=== PATIENT | female | born 1960 | race Hispanic/Latino ===

== ENCOUNTER 2016-07-31 06:57 | Inpatient (IN) | payer MEDICAID, OTHER ==
[2016-07-31 07:02] VITALS: BMI 21.9
[2016-07-31 07:05] VITALS: O2SAT 99
[2016-07-31] MEDS ORDERED: Multivitamin (MVI) 10 ML, Thiamine 100 MG, Folic Acid 1 MG in Sodium Chloride 0.9% 1,00... IV ONE (07:51)
--- NOTE | 2016-07-31 08:06 | ED PDOC ---
Arrival/HPI - General Chief Complaint: Psychiatric Evaluation Time Seen by Provider: 07/31/16 07:20 Historian: Patient - History of Present Illness Narrative History of Present Illness (Text): 07/31/16 08:10 A 55 year old female, whose past medical history includes alcoholism, anxiety and depression, presents to the emergency department complaining of nausea. Patient reports thinks feeling alcohol withdrawal. Patient reports to drinking nonstop for the past 3 months, last drink was 3 days ago. Patient also reports she has been at [facility] the last two days and was sent here for psychiatric admission. Patient notes depression, anxiety and feeling sadness, but denies suicidal ideation or any other complaints at this time. Patient denies any surgeries. Patient notes to smoking a pack a day and heavily drinking normally. 07/31/16 17:24 Symptom Onset: Sudden Symptom Course: Unchanged Activities at Onset: Rest Context: Home Past Medical History - Provider Review Nursing Documentation Reviewed: Yes - Cardiac Hx Cardiac Disorders: No - Pulmonary Hx Respiratory Disorders: No - Neurological Hx Neurological Disorder: No - HEENT Hx HEENT Disorder: No - Renal Hx Renal Disorder: No - Endocrine/Metabolic Hx Endocrine Disorders: No - Hematological/Oncological Hx Blood Disorders: No Other/Comment: hepatitis - Integumentary Hx Dermatological Disorder: No - Musculoskeletal/Rheumatological Hx Musculoskeletal Disorders: No - Gastrointestinal Hx Gastrointestinal Disorders: No Other/Comment: pud - Genitourinary/Gynecological Hx Genitourinary Disorders: No - Psychiatric Hx Anxiety: Yes Hx Depression: Yes Hx Substance Use: No - Surgical History Hx Hysterectomy: Yes Hx Tubal Ligation: Yes Family/Social History - Physician Review Nursing Documentation Reviewed: Yes Family/Social History: No Known Family HX Smoking Status: Heavy Smoker > 10 Cigarettes Daily Hx Alcohol Use: Yes (beer) Frequency of alcohol use: Daily Hx Substance Use: No Allergies/Home Meds Allergies/Adverse Reactions: Allergies No Known Allergies Allergy (Verified 07/31/16 07:02) Home Medications: Home Meds Medication Instructions Recorded Confirmed No Known Home Med 07/31/16 07/31/16 Review of Systems - Physician Review All systems were reviewed & negative as marked: Yes - Review of Systems Gastrointestinal: Nausea Psychiatric: Anxiety, Depression. absent: Suicidal Ideation Physical Exam Vital Signs Reviewed: Yes Vital Signs Temp Pulse Resp BP Pulse Ox 07/31/16 08:20 72 16 112/78 99 07/31/16 07:04 98.1 F 68 18 118/64 99 Temperature: Afebrile Blood Pressure: Normal Pulse: Regular Respiratory Rate: Normal Appearance: Positive for: Non-Toxic, Comfortable, Other (poor hygiene) Pain Distress: None Mental Status: Positive for: Alert and Oriented X 3 - Systems Exam Respiratory/Chest: Present: Clear to Auscultation, Good Air Exchange. No: Respiratory Distress, Accessory Muscle Use Cardiovascular: Present: Regular Rate and Rhythm, Normal S1, S2. No: Murmurs Abdomen: Present: Normal Bowel Sounds. No: Tenderness, Distention, Peritoneal Signs Psychiatric: Present: Alert, Oriented x 3, Normal Concentration, Anxious. No: Suicidal Ideation Medical Decision Making ED Course and Treatment: 07/31/16 07:59 Impression: A 55 year old female with a history of alcoholism, anxiety and depression. Differential Diagnosis included but are not limited to: Plan: -- Reassess and disposition Progress Notes: Dr. Talia Amezquita paged for psych and is aware of plan. Patient has a bed in psych and pt had already previously been cleared. 07/31/16 09:34 Dr. Talia Amezquita is at bedside and is aware of patient. No blood work needed. Dr. Amezquita will admit patient. 07/31/16 17:24 - Medication Orders Current Medication Orders: Fluoxetine HCl (Prozac) 10 mg PO DAILY [facility] Last Admin: 07/31/16 14:11 Dose: 10 mg Folic Acid (Folic Acid) 1 mg PO DAILY [facility] Last Admin: 07/31/16 09:56 Dose: 1 mg Gabapentin (Neurontin) 300 mg PO TID [facility] PRN Reason: Protocol Last Admin: 07/31/16 14:10 Dose: 300 mg Lorazepam (Ativan) 2 mg PO QID [facility] PRN Reason: Protocol Last Admin: 07/31/16 14:10 Dose: 2 mg Multivitamins (Thera Tab) 1 tab PO DAILY [facility] Last Admin: 07/31/16 09:56 Dose: 1 tab Nicotine (Nicoderm Cq) 1 patch TD DAILY [facility] Last Admin: 07/31/16 15:11 Dose: 1 patch Quetiapine Fumarate (Seroquel) 25 mg PO HS [facility] PRN Reason: Protocol Thiamine HCl (Vitamin B1 Tab) 100 mg PO DAILY [facility] Last Admin: 07/31/16 09:56 Dose: 100 mg Trazodone HCl (Desyrel) 50 mg PO HS PRN PRN Reason: Insomnia Discontinued Medications Famotidine (Pepcid) 20 mg IVP STAT STA Stop: 07/31/16 07:55 Multivitamins/Vitamin C 10 ml/Thiamine HCl 100 mg/ Folic Acid 1 mg/ Sodium Chloride 1,011.2 mls @ 100 mls/hr IV .[id number] ONE Stop: 07/31/16 17:57 Lorazepam (Ativan) Confirm Administered Dose 2 mg .ROUTE .STK-MED ONE Stop: 07/31/16 09:57 Last Admin: 07/31/16 10:11 Dose: 2 mg Ondansetron HCl (Zofran Inj) 4 mg IV ONCE ONE Stop: 07/31/16 07:55 - Scribe Statement The provider has reviewed the documentation as recorded by the Crescencio Kay Provider Scribe Attestation: All medical record entries made by the Babakibyamila were at my direction and personally dictated by me. I have reviewed the chart and agree that the record accurately reflects my personal performance of the history, physical exam, medical decision making, and the department course for this patient. I have also personally directed, reviewed, and agree with the discharge instructions and disposition. Disposition/Present on Arrival - Present on Arrival Any Indicators Present on Arrival: No History of DVT/PE: No History of Uncontrolled Diabetes: No Urinary Catheter: No History of Decub. Ulcer: No History Surgical Site Infection Following: None - Disposition Have Diagnosis and Disposition been Completed?: Yes Diagnosis: Anxiety Disposition: HOSPITALIZED Disposition Time: 09:00 Patient Plan: Admission Condition: STABLE
[2016-07-31] MEDS: Multivitamin Therapeutic Tab PO SCH (09:56)
--- NOTE | 2016-07-31 15:32 | PCM.PSYCH ---
Initial Psychiatric Evaluation - Initial Psychiatric Evaluation Type of Admission: Voluntary Legal Status: Capacity (pt has capacity to sing consent for treatment) Chief Complaint (in patient's own words): "I wanted to end up my life, I was thinking to walk into the traffic" Patient's Reaction to Hospitalization: pt was transferred from [facility] for evaluation and stabilization of depressive symptoms, suicidal ideation with the plan to walk into the traffic, pt also was drinking alcohol on daily basis, seems to have alcohol withdrawal symptoms. pt needs further evaluation and stabilization, meds titration. Vital Signs Temp Pulse Resp BP Pulse Ox 07/31/16 08:20 72 16 112/78 99 07/31/16 07:04 98.1 F 68 18 118/64 99 History of Present Illness and Precipitating Events: pt was transferred from [facility] for evaluation and stabilization of depressive symptoms, suicidal ideation with the plan to walk into the traffic, pt also was drinking alcohol on daily basis, seems to have alcohol withdrawal symptoms. pt needs further evaluation and stabilization, meds titration. Patient was seen in her room, patient presented to have poor personal hygiene, anxious, upper extremity tremor, seems to be withdrawing. fear ADLs. Patient reported that she was feeling hopeless, helpless, depressed, worthless, guilty, patient also reported that she had suicidal ideations with a plan to walk into the traffic. Patient reported that she has feeling of anxiety, social phobia, PTSD symptoms as well as generalized anxiety disorder. patient reported that she was drinking alcohol in order to help herself with depression and anxiety. Patient also reported that she was smoking cigarettes 1 pack a day counseling provided. 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 patient has history of suicidal attempts by cutting her wrists and overdosing on medications. Risk benefits alternatives of the medications explain. family history denied Medical issues patient is healthy. Past Psychiatric History - Past Psychiatric History Previous Treatment History: Inpatient Prior Professional Help: see HPI Prior Psychiatric Treatment: see HPI At [facility] hospital: see HPI Duration: see HPI Nature of Treatment: see HPI Explanation of prior treatment: see HPI History of Abuse: see HPI History of ETOH/Drug Use: see HPI History of Family Illness: see HPI Pertinent Medical Hx (Current Medical&Sleep Prob, Allergies): Allergies Allergy/AdvReac Type Severity Reaction Status Date / Time No Known Allergies Allergy Verified 07/31/16 07:02 Review of Systems - Review of Systems Systems not reviewed;Unavailable: Acuity of Condition - EENT Eyes: As Per HPI Ears: As Per HPI Nose/Mouth/Throat: As Per HPI - Breasts Breasts: As Per HPI - Cardiovascular Cardiovascular: As Per HPI - Respiratory Respiratory: As Per HPI - Gastrointestinal Gastrointestinal: As Per HPI - Genitourinary Genitourinary: As Per HPI - Reproductive: Female Reproductive:Female: As Per HPI - Menstruation Menstruation: As Per HPI - Musculoskeletal Musculoskeletal: As Par HPI - Integumentary Integumentary: As Per HPI - Neurological Neurological: As Per HPI - Psychiatric Psychiatric: As Per HPI - Endocrine Endocrine: As Per HPI - Hematologic/Lymphatic Hematologic: As Per HPI Mental Status Examination - Personal Presentation Personal Presentation: Looks stated age - Affect Affect: Flat - Motor Activity Motor Activity: Psychomotor Retardation - Reliability in Providing Information Reliability in Providing Information: Fair - Speech Speech: Organized - Mood Mood: Depressed, Anxious - Formal Thought Process Formal Thought Process: Paranoia - Hallucinations/Delusions Delusions: Persecution - Obsessions/Compulsions Obsessions: None Compulsions: None - Cognitive Functions Orientation: Person, Place, Situation Sensorium: Alert Attention/Concentration: Easily distracted Abstract Thinking: [place] Estimate of Intelligence: Average Judgement: Intact, as evidence by: Insight regarding need for hospitalization - Risk Risk: Suicidal, Seizure, Withdrawal, Self-mutilation, Diminished functioning - Strength & Assets Inventory Strength & Assets Inventory: Cooperative - Limitations Limitations: Other (good physical health) DSM 5 DX - DSM 5 DSM 5 Diagnosis: MDD r/o substance induced mood disorder alcohol use disorder alcohol withdrawal symptoms - Recommended/Plan of Treatment Treatment Recommendations and Plan of Treatment: milieu/structure/supportive therapy multivitamins, folic acid, Thiamine medical evaluation Prozac will be started Neurontin was started Seroquel was started ativan 2mg po qid scheduled for alcohol withdrawals trazodone 50mg po hs prn for insomnia SW evaluation will monitor closely Projected ELOS: 7days Prognosis: fair Discharge Plan and Discharge Criteria: Suicide/ homicide prevention, past psychiatric h/o, current psychiatric symptoms , medical problems, risk/benefits and alternatives of medications, medications compliance, coping strategies, substance abuse h/o, relapse prevention, importance of follow up with psychiatrist and therapist, discharge plan. - Smoking Cessation Smoking Cessation Initiated: Yes
[2016-08-01 07:30] LABS: ADD MANUAL DIFF? NO
[2016-08-01 07:34] LABS: BASO # 0.02 K/mm3 (0.0-2.0); BASO % 0.7 % (0.0-3.0); EOS # 0.1 (0.0-0.7); GRAN # 1.18 (1.4-6.5); HEMATOCRIT 40.2 % (36.0-48.0); LYMPH # 1.3 (1.2-3.4); LYMPH % 42.1 % (22.0-35.0); MEAN CELL VOLUME 97.1 fL (80.0-105.0); MEAN CORPUSCULAR HEMOGLOBIN 33.3 pg (25.0-35.0); MEAN CORPUSCULAR HGB CONC 34.3 g/dl (31.0-37.0); MONO # 0.5 (0.1-0.6); MONO % 16.2 % (1.0-6.0); PLATELET COUNT 154 10^3/uL (120.0-450.0); RED CELL DISTRIBUTION WIDTH 13.3 % (11.5-14.5)
[2016-08-01 07:48] LABS: ALB/GLOB RATIO 1.7 (1.1-1.8); ALKALINE PHOSPHATASE 59 U/L (38-133); ALT/SGPT 26 U/L (7-56); AST/SGOT 24 U/L (15-39); BILIRUBIN,TOTAL 0.6 mg/dL (0.2-1.3); BLOOD UREA NITROGEN 19 mg/dL (7-21); CALCIUM 9.5 mg/dL (8.4-10.5); CARBON DIOXIDE 27 mmol/L (21-33); CHLORIDE 107 mmol/L (98-107); CHOLESTEROL 228 mg/dL (130-200); GFR AFRICAN-AMERICAN > 60; GLUCOSE,FASTING 90 mg/dL (65-110); GLUCOSE,RANDOM 90 mg/dL (70-110); POTASSIUM 4.5 mmol/L (3.6-5.0); SODIUM 139 mmol/L (132-148); TOTAL PROTEIN 6.4 g/dL (5.8-8.3)
[2016-08-01 08:48] LABS: FREE T4 0.77 ng/dL (0.78-2.19)
[2016-08-01] MEDS: Multivitamin Therapeutic Tab PO SCH (08:48)
[2016-08-01] MEDS ORDERED: Alum-Mag Hydrox-Simethicone Susp (30 mL) PO PRN (08:56)
[2016-08-01 09:02] LABS: THYROID STIMULATING HORMONE 2.77 mIU/mL (0.46-4.68)
[2016-08-01] MEDS: Alum-Mag Hydrox-Simethicone Susp (30 mL) PO PRN (10:58)
[2016-08-01 11:36] LABS: AMYLASE 103 U/L (35-125); LIPASE 71 U/L (23-300)
--- NOTE | 2016-08-01 11:45 | CP.PCM.HP ---
<Bhupinder Julio - Last Filed: 08/01/16 11:21> History of Present Illness - History of Present Illness History of Present Illness: Medicine Consult Note. Dr. Clemons CC: Suicidal Ideation Patient is a poor historian. 55yo F with PMHx of ETOH Abuse, Depression, unknown GI ulcer, here for evaluation of suicidal ideation. Patient states that she has been depressed for the past 3 months. She has been drinking increasing amount of alcohol in order to "calm her nerves" over this time. She was seen at [facility] multiple times for similar complaints. This time, she had a suicidal attempt where she took a plastic bag and tied it around her head. She was transferred to [facility] for inpatient psych admission. Complains of feeling hopeless and helpless. Patient reports a chronic cough for the past 3 months, productive of white sputum. Subjective fevers and chills over the same amount of time. Patient reports that she was told that she has an ulcer as shown by EGD a few months back, unsure if this was done at [facility] or [facility]. She states that she also had a colonoscopy done at that time which was unremarkable. Currently, c/o right sided and lower abdominal pain. She also complains of a left sided breast lump for which she states had an out-patient mammogram about a year back but never followed up with results. No CP/SOB. No N/ V/D. No headaches. No vision changes, no hearing changes. PMHx - GI ulcer, ETOH abuse PSHx - Tubal Ligation, Bilateral Breast Implant, Hysterectomy Family Hx - Sister - breast CA, skin CA; multiple first degree relatives with cancers (pancreatic, Breast, Uterine, Esophageal, Lung) Social Hx - current pack a day smoker; Current Increased ETOH use (does not quantify); Denies any drug abuse. Lives in hotels at [place] NKDA Denies any prescribed meds at home Present on Admission - Present on Admission Any Indicators Present on Admission: No Review of Systems - Review of Systems All systems: reviewed and no additional remarkable complaints except - Constitutional Constitutional: Chills, Fever, Weight Loss (15lbs over 10 days) - EENT Eyes: absent: Change in Vision Ears: absent: Decreased Hearing - Breasts Breasts: Mass (c/o left breast lump) - Cardiovascular Cardiovascular: absent: Chest Pain, Dyspnea - Respiratory Respiratory: Cough - Gastrointestinal Gastrointestinal: Abdominal Pain. absent: Diarrhea, Nausea, Vomiting - Musculoskeletal Musculoskeletal: absent: Back Pain, Muscle Weakness, Neck Pain - Neurological Neurological: absent: Dizziness - Psychiatric Psychiatric: Anxiety, Hopelessness, Suicidal Ideation. absent: Homicidal Ideation Past Patient History - Past Social History Smoking Status: Heavy Smoker > 10 Cigarettes Daily - CARDIAC Hx Cardiac Disorders: No - PULMONARY Hx Respiratory Disorders: No - NEUROLOGICAL Hx Neurological Disorder: No - HEENT Hx HEENT Problems: No - RENAL Hx Chronic Kidney Disease: No - ENDOCRINE/METABOLIC Hx Endocrine Disorders: No - HEMATOLOGICAL/ONCOLOGICAL Hx Blood Disorders: No Other/Comment: hepatitis - INTEGUMENTARY Hx Dermatological Problems: No - MUSCULOSKELETAL/RHEUMATOLOGICAL Hx Musculoskeletal Disorders: No - GASTROINTESTINAL Hx Gastrointestinal Disorders: No Other/Comment: pud - GENITOURINARY/GYNECOLOGICAL Hx Genitourinary Disorders: No - PSYCHIATRIC Hx Substance Use: No - SURGICAL HISTORY Hx Hysterectomy: Yes Hx Tubal Ligation: Yes Meds Allergies/Adverse Reactions: Allergies Allergy/AdvReac Type Severity Reaction Status Date / Time No Known Allergies Allergy Verified 07/31/16 07:02 Physical Exam - Constitutional Appears: No Acute Distress, Unkempt, Older Than Stated Age - Head Exam Head Exam: ATRAUMATIC, NORMAL INSPECTION, NORMOCEPHALIC - Eye Exam Eye Exam: EOMI, Normal appearance. absent: Scleral icterus - ENT Exam ENT Exam: Mucous Membranes Moist - Respiratory Exam Respiratory Exam: Clear to Auscultation Bilateral, NORMAL BREATHING PATTERN. absent: Decreased Breath Sounds, Wheezes, Respiratory Distress - Cardiovascular Exam Cardiovascular Exam: RRR, +S1, +S2. absent: JVD - GI/Abdominal Exam GI & Abdominal Exam: Normal Bowel Sounds, Soft. absent: Distended, Guarding, Rebound, Rigid, Tenderness - Extremities Exam Extremities exam: Positive for: normal inspection. Negative for: calf tenderness, pedal edema - Back Exam Back exam: NORMAL INSPECTION. absent: CVA tenderness (L), CVA tenderness (R) - Neurological Exam Neurological exam: Alert, Normal Gait, Oriented x3 - Psychiatric Exam Psychiatric exam: Anxious, Depressed, Flat Affect, Suicidal Ideation - Skin Skin Exam: Rash (Central chest. few flat red rash with excoriation alonso. ) - Expanded Skin Exam Expanded Distribution of rash: Chest - Additional Findings Additional findings: Breast: No palpable lumps. No axillary lymphadenopathy. bilateral breast implants noted freely mobile, with associated surgical scars. No tenderness to palpation. No nipple retraction. Results - Vital Signs Recent Vital Signs: Last Vital Signs Temp 97.7 F 08/01/16 07:46 Pulse 65 08/01/16 07:46 Resp 20 08/01/16 07:46 BP 111/74 08/01/16 07:46 Pulse Ox 99 07/31/16 08:20 - Labs Result Diagrams: 08/01/16 07:10 08/01/16 07:10 Labs: Laboratory Results - last 24 hr 08/01/16 08/01/16 08/01/16 07:10 07:10 08:00 WBC 3.0 L RBC 4.14 Hgb 13.8 Hct 40.2 MCV 97.1 MCH 33.3 MCHC 34.3 RDW 13.3 Plt Count 154 MPV 9.0 Gran % 39.0 L Lymph % (Auto) 42.1 H Crook % (Auto) 16.2 H Eos % (Auto) 2.0 Baso % (Auto) 0.7 Gran # 1.18 L Lymph # 1.3 Crook # 0.5 Eos # 0.1 Baso # 0.02 Sodium 139 Potassium 4.5 Chloride 107 Carbon Dioxide 27 Anion Gap 10 BUN 19 Creatinine 0.8 Est GFR ( Amer) > 60 Est GFR (Non-Af Amer) > 60 Random Glucose 90 Fasting Glucose 90 Calcium 9.5 Total Bilirubin 0.6 AST 24 ALT 26 Alkaline Phosphatase 59 Total Protein 6.4 Albumin 4.0 Globulin 2.4 Albumin/Globulin Ratio 1.7 Triglycerides 57 Cholesterol 228 H LDL Cholesterol Direct 120 HDL Cholesterol 94 H Free T4 0.77 L TSH 3rd Generation 2.77 Assessment & Plan - Assessment and Plan (Free Text) Assessment: 55yo F with PMHx of GI ulcer, Depression here for evaluation of suicidal ideation. Medical consult requested for clearance 1. Suicidal Ideation management as per primary psych 2. ETOH Abuse CIWA protocol MVI/Folic Acid/Thiamine replacement Ativan scheduled management as per primary psych 3. Abd pain/ Hx of GI ulcer Amylase lipase wnl Protonix 40mg PO Daily will attempt to obtain records from outside facility 4. Chronic Cough in the setting of Tobacco abuse tobacco cessation counseling f/u Chest XRay Robitussin prn Nicotine Patch 5. Breast nodule patient reports out-patient Mammogram will attempt to obtain records from outside facility 6. PPx Ambulatory Protonix 40mg PO Daily Discussed case with Dr. Kaci Julio PGY1 <Debora Clemons - Last Filed: 08/01/16 13:45> Results - Vital Signs Recent Vital Signs: Last Vital Signs Temp 97.7 F 08/01/16 07:46 Pulse 65 08/01/16 07:46 Resp 20 08/01/16 07:46 BP 111/74 08/01/16 07:46 Pulse Ox 99 07/31/16 08:20 - Labs Result Diagrams: 08/01/16 07:10 08/01/16 07:10 Labs: Laboratory Results - last 24 hr 08/01/16 08/01/16 08/01/16 07:00 07:10 07:10 WBC 3.0 L RBC 4.14 Hgb 13.8 Hct 40.2 MCV 97.1 MCH 33.3 MCHC 34.3 RDW 13.3 Plt Count 154 MPV 9.0 Gran % 39.0 L Lymph % (Auto) 42.1 H Crook % (Auto) 16.2 H Eos % (Auto) 2.0 Baso % (Auto) 0.7 Gran # 1.18 L Lymph # 1.3 Crook # 0.5 Eos # 0.1 Baso # 0.02 Sodium 139 Potassium 4.5 Chloride 107 Carbon Dioxide 27 Anion Gap 10 BUN 19 Creatinine 0.8 Est GFR ( Amer) > 60 Est GFR (Non-Af Amer) > 60 Random Glucose 90 Fasting Glucose 90 Calcium 9.5 Total Bilirubin 0.6 AST 24 ALT 26 Alkaline Phosphatase 59 Total Protein 6.4 Albumin 4.0 Globulin 2.4 Albumin/Globulin Ratio 1.7 Triglycerides 57 Cholesterol 228 H LDL Cholesterol Direct 120 HDL Cholesterol 94 H Amylase 103 Lipase 71 Free T4 TSH 3rd Generation 08/01/16 08:00 WBC RBC Hgb Hct MCV MCH MCHC RDW Plt Count MPV Gran % Lymph % (Auto) Crook % (Auto) Eos % (Auto) Baso % (Auto) Gran # Lymph # Crook # Eos # Baso # Sodium Potassium Chloride Carbon Dioxide Anion Gap BUN Creatinine Est GFR ( Amer) Est GFR (Non-Af Amer) Random Glucose Fasting Glucose Calcium Total Bilirubin AST ALT Alkaline Phosphatase Total Protein Albumin Globulin Albumin/Globulin Ratio Triglycerides Cholesterol LDL Cholesterol Direct HDL Cholesterol Amylase Lipase Free T4 0.77 L TSH 3rd Generation 2.77 Attending/Attestation - Attestation I have personally seen and examined this patient.: Yes I have fully participated in the care of the patient.: Yes I have reviewed all pertinent clinical information: Yes Notes (Text): 08/01/16 13:39 MEDICAL CONSULTATION 55 year old female with past medical history of GI ulcer, depression and alcohol abuse who presented for evaluation of suicidal ideation. Medical consultation was requested for medical evaluation. Continue with management for anxiety/depression as per psychiatrist. Continue with multivitamin, folic acid and thiamine for alcohol abuse. She was counselled on alcohol abstinence. Continue with protonix and diet as tolerated for history of GI ulcer. Labs including LFTs and amylase/lipase are unremarkable. CXR is negative. Can add robitussin prn for cough. She was counselled on smoking abstinence. Patient reports history of breast nodule. She reports a mammogram she had few years ago but never followed up on. She also reports family history of different malignancies above. Reports recent EGD/colonoscopy. Will request for medical records for workup she has already had. Will order for ultrasound of the breasts. Thank you Dr. Amezquita for allowing us to follow up in the care of this patient. Debora Clemons MD Hospitalist.
[2016-08-01] MEDS ORDERED: guaiFENesin DM 100 mg-10 mg/5 ml UD PO PRN (12:03)
[2016-08-01] MEDS: Pantoprazole 40 mg EC Tab PO SCH (13:22)
--- NOTE | 2016-08-01 13:26 | RAD ---
HISTORY: cough COMPARISON: No prior. TECHNIQUE: Chest PA and lateral FINDINGS: LUNGS: No active pulmonary disease. PLEURA: No significant pleural effusion identified. No pneumothorax apparent. CARDIOVASCULAR: Normal. OSSEOUS STRUCTURES: No significant abnormalities. VISUALIZED UPPER ABDOMEN: Normal. OTHER FINDINGS: None. IMPRESSION: No active disease.
--- NOTE | 2016-08-01 15:41 | PCM.PYCHPN ---
Psychiatric Progress Note - Psychiatric Progress Note Patient seen today, length of contact: 30min Patient Chief Complaint: "I am so scared, I don't trust people" Problems Identified/Issues Discussed: Suicide/ homicide prevention, past psychiatric h/o, current psychiatric symptoms , medical problems, risk/benefits and alternatives of medications, medications compliance, coping strategies, substance abuse h/o, relapse prevention, importance of follow up with psychiatrist and therapist, discharge plan. 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 Diagnostic Results: 08/01/16 07:10 08/01/16 07:10 Lab Results 08/01/16 08:00: Free T4 0.77 L, TSH 3rd Generation 2.77 08/01/16 07:10: Sodium 139, Potassium 4.5, Chloride 107, Carbon Dioxide 27, Anion Gap 10, BUN 19, Creatinine 0.8, Est GFR ( Amer) > 60, Est GFR (Non- Af Amer) > 60, Random Glucose 90, Fasting Glucose 90, Calcium 9.5, Total Bilirubin 0.6, AST 24, ALT 26, Alkaline Phosphatase 59, Total Protein 6.4, Albumin 4.0, Globulin 2.4, Albumin/Globulin Ratio 1.7, Triglycerides 57, Cholesterol 228 H, LDL Cholesterol Direct 120, HDL Cholesterol 94 H 08/01/16 07:10: WBC 3.0 L, RBC 4.14, Hgb 13.8, Hct 40.2, MCV 97.1, MCH 33.3, MCHC 34.3, RDW 13.3, Plt Count 154, MPV 9.0, Gran % 39.0 L, Lymph % (Auto) 42.1 H, [place] % (Auto) 16.2 H, Eos % (Auto) 2.0, Baso % (Auto) 0.7, Gran # 1.18 L, Lymph # 1.3, [place] # 0.5, Eos # 0.1, Baso # 0.02 08/01/16 07:00: Amylase 103, Lipase 71 Vital Signs Temp Pulse Resp BP Pulse Ox 08/01/16 07:46 97.7 F 65 20 111/74 07/31/16 08:20 72 16 112/78 99 07/31/16 07:04 98.1 F 68 18 118/64 99 DSM 5 Symptoms Update: pt was transferred from [facility] for evaluation and stabilization of depressive symptoms, suicidal ideation with the plan to walk into the traffic, pt also was drinking alcohol on daily basis, seems to have alcohol withdrawal symptoms. pt needs further evaluation and stabilization, meds titration. Patient was at the treatment team, patient presented to have poor personal hygiene, anxious, upper extremity tremor, but better to compare with yesterday. Patient reported that she was feeling hopeless, helpless, depressed, worthless, guilty, patient also reported that she had suicidal ideation with a plan to walk into the traffic. patient was keep repeating "I cannot live this way no more". Patient presented to [facility], was keep repeating that she is scared and anxious. 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 patient has history of suicidal attempts by cutting her wrists and overdosing on medications. Risk benefits alternatives of the medications explain. patient said that she tolerated medications well, no side effects observed or reported. impression: DSM 5 Diagnosis: MDD r/o substance induced mood disorder alcohol use disorder alcohol withdrawal symptoms Medication Change: Yes Medical Record Reviewed: Yes Consults ordered or reviewed: medical consult appreciated Mental Status Examination - Cognitive Function Orientation: Person, Place, Situation Memory: Intact Attention: Poor Concentration: Poor Association: Loose Fund of Knowledge: Poor - Mood Mood: Depressed, Anxious - Affect Affect: Flat - Formal Thought Process Formal Thought Process: Paranoia - Suicidal Ideation Suicidal Ideation: No - Homicidal Ideation Homicidal Ideation: No Goal/Treatment Plan - Goal/Treatment Plan Need for Continued Stay: Remain at risks for inpatient hospitalization, Severe depression anxiety, Discharge may exacerbated symptoms, Severe functional impairment Progress Toward Problem(s) and Goals/Treatment Plan: milieu/structure/supportive therapy multivitamins, folic acid, Thiamine medical evaluation Prozac 20 mg daily for depression and anxiety Neurontin will be increased to 600 mg 3 times a day Seroquel will be increased to50 mg t the nighttime for psychosis ativan 2mg po qid scheduled for alcohol withdrawals, with a plan to start weaning it off trazodone 50mg po hs prn for insomnia SW evaluation will monitor closely Estimated Date of D/C: 08/06/16 (we'll monitor closely) - Smoking Cessation Smoking Cessation Initiated: Yes
--- NOTE | 2016-08-02 09:05 | PCM.PYCHPN ---
Psychiatric Progress Note - Psychiatric Progress Note Patient seen today, length of contact: 25 min Patient Chief Complaint: "not so great" Problems Identified/Issues Discussed: I reviewed assessment and recent notes. I met with patient at bedside. Patient is oriented x3 and fairly calm and cooperative. Mood "isn't great", indicates that she currently has a migraine--which has improved a little overnight. Her affect is flat. Denies any other new discomfort or pain. Tolerating medications except for nicotine patch which she wanted lowered. Feels it is giving her hallucinations and headache. There were no behavioral issues overnight Diagnostic Results: r/o substance induced mood disorder alcohol use disorder alcohol withdrawal symptoms Medication Change: Yes (ativan tapered, nicotine patch lowered) Medical Record Reviewed: Yes Mental Status Examination - Cognitive Function Orientation: Person, Place, Situation Memory: Intact Attention: Poor Concentration: Poor Association: Loose Fund of Knowledge: Poor - Mood Mood: Depressed, Anxious - Affect Affect: Flat - Formal Thought Process Formal Thought Process: Hallucinations, Paranoia - Suicidal Ideation Suicidal Ideation: No - Homicidal Ideation Homicidal Ideation: No Goal/Treatment Plan - Goal/Treatment Plan Need for Continued Stay: Remain at risks for inpatient hospitalization, Severe depression anxiety, Discharge may exacerbated symptoms, Severe functional impairment Progress Toward Problem(s) and Goals/Treatment Plan: * c/w current tx and plan * No new weekend labs * Ativan tapered to 2 mg po TID today * Vitals reviewed and noted below: Selected Entries 08/01/16 08/01/16 07:46 19:58 Temperature 97.7 F Pulse Rate 65 85 Respiratory 20 18 Rate Blood Pressure 111/74 120/65 Estimated Date of D/C: 08/06/16 (we'll monitor closely)
[2016-08-02] MEDS: Pantoprazole 40 mg EC Tab PO SCH (09:06)
[2016-08-02] MEDS: Multivitamin Therapeutic Tab PO SCH (09:06)
[2016-08-02] MEDS: Apap-Butalbital-Caffeine 325-50-40mg Tab PO PRN ×2 (13:12→21:04)
[2016-08-02] MEDS ORDERED: Alum-Mag Hydrox-Simethicone Susp (30 mL) PO PRN (17:29)
[2016-08-02] MEDS: Alum-Mag Hydrox-Simethicone Susp (30 mL) PO PRN (17:52)
[2016-08-03] MEDS: Pantoprazole 40 mg EC Tab PO SCH (08:12)
[2016-08-03] MEDS: Multivitamin Therapeutic Tab PO SCH (08:13)
[2016-08-03] MEDS: Apap-Butalbital-Caffeine 325-50-40mg Tab PO PRN ×2 (08:18→16:00)
--- NOTE | 2016-08-03 09:16 | PCM.PYCHPN ---
Psychiatric Progress Note - Psychiatric Progress Note Patient seen today, length of contact: 25 min Patient Chief Complaint: "not so great" Problems Identified/Issues Discussed: I reviewed recent notes and met with patient in the dayroom. Patient remains oriented x3 and cooperative with questioning. She has a lot of questions for this provider and can be repetitive as well as rambling. Affect is anxious. Nonetheless she can be redirected. Patient reports that she remains depressed and anxious, specifies having a lot of social anxiety and dissociates sometimes on the unit when she's faced with interacting within a group. She has been tolerating Prozac well and reports of her headache from yesterday has resolved. Her sleep is "good with seroquel". She still reports having auditory hallucinations, specifically she hears "babies babble" and hears her fish sister's voice making mundane comments such as "let's make spaghetti". Patient does not appear to be responding to internal stimuli during our interactions. Her responses are generally relevant to questioning. Though, as noted above responses tend to ramble and thought process is a little scattered Patient denies any other new discomfort or pain. Tolerating medications. There were no behavioral issues overnight Diagnostic Results: r/o substance induced mood disorder alcohol use disorder alcohol withdrawal symptoms Medication Change: Yes (Seroquel increased to 12.5 mg AM + 25 mg HS for AH, anxiety, lability) Medical Record Reviewed: Yes (reports, labs, vitals, notes) Mental Status Examination - Cognitive Function Orientation: Person ("babies babbling, my sister talking to me"), Place, Situation Memory: Intact Attention: Poor Concentration: Poor Association: Loose Fund of Knowledge: Poor - Mood Mood: Depressed, Anxious - Affect Affect: Flat - Formal Thought Process Formal Thought Process: Hallucinations, Paranoia - Suicidal Ideation Suicidal Ideation: No - Homicidal Ideation Homicidal Ideation: No Goal/Treatment Plan - Goal/Treatment Plan Need for Continued Stay: Remain at risks for inpatient hospitalization, Severe depression anxiety, Discharge may exacerbated symptoms, Severe functional impairment Progress Toward Problem(s) and Goals/Treatment Plan: * c/w current tx and plan * No new weekend labs * Ativan tapered to 2 mg po TID on 08/02/16 * Seroquel increased to 12.5 mg AM + 25 mg HS for AH, anxiety, lability and scattered thought process * Vitals reviewed and noted below: Selected Entries 08/02/16 08/02/16 07:00 16:29 Temperature 97.9 F Pulse Rate 62 78 Respiratory 18 Rate Blood Pressure 111/68 140/77 Estimated Date of D/C: 08/06/16 (we'll monitor closely)
[2016-08-03] MEDS: Alum-Mag Hydrox-Simethicone Susp (30 mL) PO PRN (15:13)
[2016-08-04] MEDS: Apap-Butalbital-Caffeine 325-50-40mg Tab PO PRN ×3 (06:20→21:44)
[2016-08-04] MEDS: Pantoprazole 40 mg EC Tab PO SCH (08:14)
[2016-08-04] MEDS: Multivitamin Therapeutic Tab PO SCH (08:14)
--- NOTE | 2016-08-04 09:24 | PCM.PYCHPN ---
Psychiatric Progress Note - Psychiatric Progress Note Patient seen today, length of contact: 25 min Patient Chief Complaint: "not so great" Problems Identified/Issues Discussed: I reviewed recent notes and met with patient in the dayroom. Patient remains oriented x3 and cooperative with questioning. Her thought process continues to be scattered, rambling, repetitive and a little contradictory. Affect is anxious. Nonetheless she can be redirected. Patient reports that she remains depressed and anxious, specifies still having a lot of social anxiety and dissociates sometimes on the unit when she's faced with interacting within a group. She has been tolerating Prozac well and reports that her headache from Thursday has resolved. Her sleep is "good with seroquel". Patient also initially indicated that Seroquel was quite beneficial in resolving her auditory hallucinations during the day yesterday however, later in the conversation patient reports that Seroquel was not beneficial at all. Patient also expresses some frustration about the length of time it takes for the medications to work despite being reminded by this provider and staff about the therapeutic latency of her medications. Patient still reports having auditory hallucinations, of hearing her sister's voice making comments. Also reports visual hallucinations of seeing her boyfriend on a picnic and her sister making spaghetti and brownies. Of note, patient does not appear to be responding to internal stimuli during our interactions. Her responses are generally relevant to questioning. Though, as noted above responses tend to ramble and thought process is scattered Patient denies any other new discomfort or pain. Tolerating medications. There were no behavioral issues overnight Diagnostic Results: r/o substance induced mood disorder alcohol use disorder alcohol withdrawal symptoms Medication Change: Yes (Seroquel increased to 12.5/25 mg HS, ativan tapered) Medical Record Reviewed: Yes (reports, labs, vitals, notes) Mental Status Examination - Cognitive Function Orientation: Person (" my sister talking to me, visual hallucinations of seeing her boyfriend on a picnic and her sister making spaghetti and brownies.), Place , Situation Memory: Intact Attention: Poor Concentration: Poor Association: Loose Fund of Knowledge: Poor - Mood Mood: Depressed, Anxious - Affect Affect: Flat - Formal Thought Process Formal Thought Process: Hallucinations, Paranoia, Loosening of associations - Suicidal Ideation Suicidal Ideation: No - Homicidal Ideation Homicidal Ideation: No Goal/Treatment Plan - Goal/Treatment Plan Need for Continued Stay: Remain at risks for inpatient hospitalization, Severe depression anxiety, Discharge may exacerbated symptoms, Severe functional impairment Progress Toward Problem(s) and Goals/Treatment Plan: * c/w current tx and plan * No new weekend labs * Ativan tapered to 2 mg po TID on 08/02/16 and to 2 mg AMHS on 08/04/16 * Seroquel increased to 12.5 mg AM + 25 mg HS on 08/03/16 for AH, anxiety, lability and scattered thought process * Vitals reviewed and noted below: Selected Entries 08/04/16 07:37 Temperature 98.2 F Pulse Rate 78 Respiratory 17 Rate Blood Pressure 145/56 L Estimated Date of D/C: 08/06/16 (we'll monitor closely)
[2016-08-04] MEDS: Magnesium Hydroxide Susp 30 ml UD PO PRN (10:44)
[2016-08-05] MEDS: Apap-Butalbital-Caffeine 325-50-40mg Tab PO PRN ×3 (06:15→21:00)
[2016-08-05] MEDS: Multivitamin Therapeutic Tab PO SCH (08:32)
[2016-08-05] MEDS: Pantoprazole 40 mg EC Tab PO SCH (08:33)
--- NOTE | 2016-08-05 15:55 | PCM.PYCHPN ---
Psychiatric Progress Note - Psychiatric Progress Note Patient seen today, length of contact: 30 minutes Patient Chief Complaint: "people were just dancing on my bed, I also saw a spider on my neck, I asked my boyfriend may take it off?" Patient is acutely psychotic, no evidence for all of that Problems Identified/Issues Discussed: Suicide/ homicide prevention, past psychiatric h/o, current psychiatric symptoms , medical problems, risk/benefits and alternatives of medications, medications compliance, coping strategies, substance abuse h/o, relapse prevention, importance of follow up with psychiatrist and therapist, discharge plan. 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 Diagnostic Results: 08/01/16 07:10 08/01/16 07:10 Lab Results 08/01/16 08:00: Free T4 0.77 L, TSH 3rd Generation 2.77 08/01/16 07:10: Sodium 139, Potassium 4.5, Chloride 107, Carbon Dioxide 27, Anion Gap 10, BUN 19, Creatinine 0.8, Est GFR ( Amer) > 60, Est GFR (Non- Af Amer) > 60, Random Glucose 90, Fasting Glucose 90, Calcium 9.5, Total Bilirubin 0.6, AST 24, ALT 26, Alkaline Phosphatase 59, Total Protein 6.4, Albumin 4.0, Globulin 2.4, Albumin/Globulin Ratio 1.7, Triglycerides 57, Cholesterol 228 H, LDL Cholesterol Direct 120, HDL Cholesterol 94 H 08/01/16 07:10: WBC 3.0 L, RBC 4.14, Hgb 13.8, Hct 40.2, MCV 97.1, MCH 33.3, MCHC 34.3, RDW 13.3, Plt Count 154, MPV 9.0, Gran % 39.0 L, Lymph % (Auto) 42.1 H, [place] % (Auto) 16.2 H, Eos % (Auto) 2.0, Baso % (Auto) 0.7, Gran # 1.18 L, Lymph # 1.3, [place] # 0.5, Eos # 0.1, Baso # 0.02 08/01/16 07:00: Amylase 103, Lipase 71 Vital Signs Temp Pulse Resp BP Pulse Ox 08/01/16 07:46 97.7 F 65 20 111/74 07/31/16 08:20 72 16 112/78 99 07/31/16 07:04 98.1 F 68 18 118/64 99 Temp Pulse Resp BP Pulse Ox 98.5 F 73 18 139/63 99 08/05/16 08:03 08/05/16 08:03 08/05/16 08:03 08/05/16 08:03 07/31/16 08:20 DSM 5 Symptoms Update: pt was transferred from [facility] for evaluation and stabilization of depressive symptoms, suicidal ideation with the plan to walk into the traffic, pt also was drinking alcohol on daily basis, seems to have alcohol withdrawal symptoms. pt needs further evaluation and stabilization, meds titration. Patient was seen in her room, patient presented to have improved personal hygiene, less anxious, some improvement to compare with the last week, pt still has difficulties to stay focused, disorganized, psychotic, paranoid, "people were just dancing on my bed, I also saw a spider on my neck, I asked my boyfriend may take it off?" Patient is acutely psychotic, no evidence for all of that Patient reported that she was feeling hopeless, helpless, depressed, worthless, guilty,denied thoughts of harming self today. as per staff, patient presented to be disorganized, actively hallucinating, talking to imaginary boyfriend, oddly related to others, patient is compliant with the medications, no aggression, no agitation. Compliance with medications good. impression: DSM 5 Diagnosis: MDD r/o substance induced mood disorder alcohol use disorder alcohol withdrawal symptoms Medication Change: Yes (seroquel increased) Medical Record Reviewed: Yes (reports, labs, vitals, notes) Consults ordered or reviewed: medical consult appreciated Mental Status Examination - Cognitive Function Orientation: Person (" my sister talking to me, visual hallucinations of seeing her boyfriend on a picnic and her sister making spaghetti and brownies.), Place , Situation Memory: Intact Attention: Poor Concentration: Poor Association: Loose Fund of Knowledge: Poor - Mood Mood: Depressed, Anxious - Affect Affect: Flat - Formal Thought Process Formal Thought Process: Hallucinations ("people were dancing on my bed"), Paranoia, Loosening of associations - Suicidal Ideation Suicidal Ideation: No - Homicidal Ideation Homicidal Ideation: No Goal/Treatment Plan - Goal/Treatment Plan Need for Continued Stay: Remain at risks for inpatient hospitalization, Severe depression anxiety, Discharge may exacerbated symptoms, Severe functional impairment Progress Toward Problem(s) and Goals/Treatment Plan: milieu/structure/supportive therapy multivitamins, folic acid, Thiamine medical evaluation Prozac 20 mg daily for depression and anxiety Neurontin 800 mg 3 times a day Seroquel will be increased to50 mg at am and 100mg the nighttime for psychosis ativan will be tapering down SW evaluation will monitor closely Estimated Date of D/C: 08/06/16 (we'll monitor closely)
[2016-08-06] MEDS: Apap-Butalbital-Caffeine 325-50-40mg Tab PO PRN ×2 (07:19→14:28)
[2016-08-06] MEDS: Pantoprazole 40 mg EC Tab PO SCH (08:07)
[2016-08-06] MEDS: Multivitamin Therapeutic Tab PO SCH (08:07)
[2016-08-06] MEDS: Magnesium Hydroxide Susp 30 ml UD PO PRN (08:08)
--- NOTE | 2016-08-06 15:04 | PCM.PYCHPN ---
Psychiatric Progress Note - Psychiatric Progress Note Patient seen today, length of contact: 30 minutes Patient Chief Complaint: "I am depressed and anxious" Problems Identified/Issues Discussed: Suicide/ homicide prevention, past psychiatric h/o, current psychiatric symptoms , medical problems, risk/benefits and alternatives of medications, medications compliance, coping strategies, substance abuse h/o, relapse prevention, importance of follow up with psychiatrist and therapist, discharge plan. 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 Diagnostic Results: 08/01/16 07:10 08/01/16 07:10 Lab Results 08/01/16 08:00: Free T4 0.77 L, TSH 3rd Generation 2.77 08/01/16 07:10: Sodium 139, Potassium 4.5, Chloride 107, Carbon Dioxide 27, Anion Gap 10, BUN 19, Creatinine 0.8, Est GFR ( Amer) > 60, Est GFR (Non- Af Amer) > 60, Random Glucose 90, Fasting Glucose 90, Calcium 9.5, Total Bilirubin 0.6, AST 24, ALT 26, Alkaline Phosphatase 59, Total Protein 6.4, Albumin 4.0, Globulin 2.4, Albumin/Globulin Ratio 1.7, Triglycerides 57, Cholesterol 228 H, LDL Cholesterol Direct 120, HDL Cholesterol 94 H 08/01/16 07:10: WBC 3.0 L, RBC 4.14, Hgb 13.8, Hct 40.2, MCV 97.1, MCH 33.3, MCHC 34.3, RDW 13.3, Plt Count 154, MPV 9.0, Gran % 39.0 L, Lymph % (Auto) 42.1 H, [place] % (Auto) 16.2 H, Eos % (Auto) 2.0, Baso % (Auto) 0.7, Gran # 1.18 L, Lymph # 1.3, [place] # 0.5, Eos # 0.1, Baso # 0.02 08/01/16 07:00: Amylase 103, Lipase 71 Vital Signs Temp Pulse Resp BP Pulse Ox 08/01/16 07:46 97.7 F 65 20 111/74 07/31/16 08:20 72 16 112/78 99 07/31/16 07:04 98.1 F 68 18 118/64 99 Temp Pulse Resp BP Pulse Ox 98.5 F 73 18 139/63 99 08/05/16 08:03 08/05/16 08:03 08/05/16 08:03 08/05/16 08:03 07/31/16 08:20 Temp Pulse Resp BP Pulse Ox 98.1 F 72 16 128/82 99 08/06/16 07:52 08/06/16 07:52 08/06/16 07:52 08/06/16 07:52 07/31/16 08:20 DSM 5 Symptoms Update: pt was transferred from [facility] for evaluation and stabilization of depressive symptoms, suicidal ideation with the plan to walk into the traffic, pt also was drinking alcohol on daily basis, seems to have alcohol withdrawal symptoms. pt needs further evaluation and stabilization, meds titration. Patient was seen next to the nursing station, patient presented to have improved personal hygiene, less anxious, some improvement to compare with the last week, pt still has difficulties to stay focused, patient was more organized today, less psychotic, yesterday pt has impression that people had green party on her bed and had "spider on my neck". Patient reported that she feels "depressed and anxious". as per staff pt still disorganized, but hygiene is better, still oddly related to others, patient is compliant with the medications, no aggression, no agitation. Compliance with medications good. impression: DSM 5 Diagnosis: MDD r/o substance induced mood disorder alcohol use disorder alcohol withdrawal symptoms Medication Change: Yes (seroquel increased) Medical Record Reviewed: Yes (reports, labs, vitals, notes) Consults ordered or reviewed: medical consult appreciated Mental Status Examination - Cognitive Function Orientation: Person (" my sister talking to me, visual hallucinations of seeing her boyfriend on a picnic and her sister making spaghetti and brownies.), Place , Situation Memory: Intact Attention: Poor (some improvement) Concentration: Poor (some improvement) Association: Loose (some improvement) Fund of Knowledge: Poor - Mood Mood: Depressed (some improvement), Anxious - Affect Affect: Flat - Formal Thought Process Formal Thought Process: Hallucinations (deneid today), Paranoia, Loosening of associations - Suicidal Ideation Suicidal Ideation: No - Homicidal Ideation Homicidal Ideation: No Goal/Treatment Plan - Goal/Treatment Plan Need for Continued Stay: Remain at risks for inpatient hospitalization, Severe depression anxiety, Discharge may exacerbated symptoms, Severe functional impairment Progress Toward Problem(s) and Goals/Treatment Plan: milieu/structure/supportive therapy multivitamins, folic acid, Thiamine medical evaluation Prozac 30 mg daily for depression and anxiety Neurontin 800 mg 3 times a day Seroquel will be increased to 100 mg at am and 100mg the nighttime for psychosis ativan will be tapering down 1mg bid pt will be interviewed by the boarding home today SW evaluation will monitor closely Estimated Date of D/C: 08/08/16 (pt is still psychotic, disorganized)
[2016-08-07] MEDS: Apap-Butalbital-Caffeine 325-50-40mg Tab PO PRN ×3 (05:52→18:05)
[2016-08-07] MEDS: Multivitamin Therapeutic Tab PO SCH (08:14)
[2016-08-07] MEDS: Pantoprazole 40 mg EC Tab PO SCH (08:14)
--- NOTE | 2016-08-07 15:35 | CP.PCM.PN ---
<NoriBhupinder - Last Filed: 08/07/16 15:23> Subjective - Date & Time of Evaluation Date of Evaluation: 08/07/16 Time of Evaluation: 12:40 - Subjective Subjective: Medicine Progress note. Dr. Jeronimo Pt seen and counseled in psych bowling. Patient eating lunch. Denies any complaints. Objective - Vital Signs/Intake and Output Vital Signs (last 24 hours): Temp Pulse Resp BP Pulse Ox 98.0 F 65 16 124/74 99 08/07/16 07:37 08/07/16 07:37 08/06/16 07:52 08/07/16 07:37 07/31/16 08:20 - Medications Medications: Current Medications Acetaminophen (Tylenol 325mg Tab) 650 mg PO Q6H PRN PRN Reason: Pain, moderate (4-7) Last Admin: 07/31/16 20:22 Dose: 650 mg Acetaminophen/Butalbital/Caffeine (Fioricet) 1 tab PO Q8 PRN PRN Reason: Headache Last Admin: 08/07/16 11:16 Dose: 1 tab Al Hydrox/Mg Hydrox/Simethicone (Maalox Plus 30 Ml) 30 ml PO DAILY PRN PRN Reason: Indigestion / Heartburn Last Admin: 08/03/16 15:13 Dose: 30 ml Fluoxetine HCl (Prozac) 30 mg PO DAILY [facility] Last Admin: 08/07/16 08:15 Dose: 30 mg Folic Acid (Folic Acid) 1 mg PO DAILY [facility] Last Admin: 08/07/16 08:14 Dose: 1 mg Gabapentin (Neurontin) 800 mg PO TID [facility] PRN Reason: Protocol Last Admin: 08/07/16 13:07 Dose: 800 mg Guaifenesin/Dextromethorphan (Robitussin Dm) 5 ml PO Q4H PRN PRN Reason: Cough Lorazepam (Ativan) 1 mg PO BID [facility] PRN Reason: Protocol Last Admin: 08/07/16 08:16 Dose: 1 mg Magnesium Hydroxide (Milk Of Magnesia) 30 ml PO DAILY PRN PRN Reason: Constipation Last Admin: 08/06/16 08:08 Dose: 30 ml Multivitamins (Thera Tab) 1 tab PO DAILY [facility] Last Admin: 08/07/16 08:14 Dose: 1 tab Nicotine (Nicoderm Cq) 1 patch TD DAILY [facility] Last Admin: 08/07/16 08:13 Dose: 1 patch Pantoprazole Sodium (Protonix Ec Tab) 40 mg PO ACB [facility] Last Admin: 08/07/16 08:14 Dose: 40 mg Quetiapine Fumarate (Seroquel) 100 mg PO HS [facility] PRN Reason: Protocol Last Admin: 08/06/16 21:18 Dose: 100 mg Quetiapine Fumarate (Seroquel) 100 mg PO DAILY [facility] PRN Reason: Protocol Last Admin: 08/07/16 08:15 Dose: 100 mg Thiamine HCl (Vitamin B1 Tab) 100 mg PO DAILY [facility] Last Admin: 08/07/16 08:16 Dose: 100 mg Trazodone HCl (Desyrel) 50 mg PO HS PRN PRN Reason: Insomnia Last Admin: 08/06/16 21:18 Dose: 50 mg - Labs Labs: 08/01/16 07:10 08/01/16 07:10 - Constitutional Appears: Well, No Acute Distress - Head Exam Head Exam: ATRAUMATIC, NORMAL INSPECTION, NORMOCEPHALIC - Eye Exam Eye Exam: EOMI - Extremities Exam Extremities Exam: Normal Inspection - Neurological Exam Neurological Exam: Alert, Awake, Oriented x3 Assessment and Plan - Assessment and Plan (Free Text) Assessment: 55yo F with suicidal ideation. Patient reports LT breast nodule As previously noted, patient reported left ivis-areolar breast nodule. Patient states that she had an out-patient mammogram performed at [facility]. She states that she never followed up and was not told the results. Multiple attempts were made in order to try and obtain these records. As per nursing staff, there is no record of the patient ever having had the mammogram. Of note: Benign breast exam performed by me on 08/01/16. Noted bilateral implants. At this time, we would recommend the patient to follow up with her Primary care physician upon discharge from in-patient psychiatry unit. We recommend getting an out-patient Mammogram performed. No clinical evidence to perform Breast US at this time. -continue current psych management -no further recommendations from medical standpoint at this time. Bhupinder Julio PGY1 <Kandace WOMACK,Alyssa - Last Filed: 08/07/16 16:37> Objective - Vital Signs/Intake and Output Vital Signs (last 24 hours): Temp Pulse Resp BP Pulse Ox 98.0 F 65 16 124/74 99 08/07/16 07:37 08/07/16 07:37 08/06/16 07:52 08/07/16 07:37 07/31/16 08:20 - Medications Medications: Current Medications Acetaminophen (Tylenol 325mg Tab) 650 mg PO Q6H PRN PRN Reason: Pain, moderate (4-7) Last Admin: 07/31/16 20:22 Dose: 650 mg Acetaminophen/Butalbital/Caffeine (Fioricet) 1 tab PO Q8 PRN PRN Reason: Headache Last Admin: 08/07/16 11:16 Dose: 1 tab Al Hydrox/Mg Hydrox/Simethicone (Maalox Plus 30 Ml) 30 ml PO DAILY PRN PRN Reason: Indigestion / Heartburn Last Admin: 08/03/16 15:13 Dose: 30 ml Fluoxetine HCl (Prozac) 30 mg PO DAILY [facility] Last Admin: 08/07/16 08:15 Dose: 30 mg Folic Acid (Folic Acid) 1 mg PO DAILY [facility] Last Admin: 08/07/16 08:14 Dose: 1 mg Gabapentin (Neurontin) 800 mg PO TID [facility] PRN Reason: Protocol Last Admin: 08/07/16 13:07 Dose: 800 mg Guaifenesin/Dextromethorphan (Robitussin Dm) 5 ml PO Q4H PRN PRN Reason: Cough Lorazepam (Ativan) 0.5 mg PO BID [facility] PRN Reason: Protocol Last Admin: 08/07/16 15:53 Dose: 0.5 mg Magnesium Hydroxide (Milk Of Magnesia) 30 ml PO DAILY PRN PRN Reason: Constipation Last Admin: 08/06/16 08:08 Dose: 30 ml Multivitamins (Thera Tab) 1 tab PO DAILY [facility] Last Admin: 08/07/16 08:14 Dose: 1 tab Nicotine (Nicoderm Cq) 1 patch TD DAILY [facility] Last Admin: 08/07/16 08:13 Dose: 1 patch Pantoprazole Sodium (Protonix Ec Tab) 40 mg PO ACB [facility] Last Admin: 08/07/16 08:14 Dose: 40 mg Quetiapine Fumarate (Seroquel) 150 mg PO DAILY [facility] PRN Reason: Protocol Quetiapine Fumarate (Seroquel) 150 mg PO HS [facility] PRN Reason: Protocol Thiamine HCl (Vitamin B1 Tab) 100 mg PO DAILY [facility] Last Admin: 08/07/16 08:16 Dose: 100 mg Trazodone HCl (Desyrel) 50 mg PO HS PRN PRN Reason: Insomnia Last Admin: 08/06/16 21:18 Dose: 50 mg - Labs Labs: 08/01/16 07:10 08/01/16 07:10 Attending/Attestation - Attestation I have personally seen and examined this patient.: Yes I have fully participated in the care of the patient.: Yes I have reviewed all pertinent clinical information, including history, physical exam and plan: Yes Notes (Text): 08/07/16 16:34 Patient was seen and examined with certified medical asst .Agreed with resident assessment and plan. Patient does not has any acute medical issue at this time.She will need Mammogram as out patient.This was discussed in detail with her.As there is no acute medical issue, we will sign off.Please call us back , if any question. Management plan was discussed in detail with patient Education was provided.
--- NOTE | 2016-08-07 15:42 | PCM.PYCHPN ---
Psychiatric Progress Note - Psychiatric Progress Note Patient seen today, length of contact: 30 minutes Patient Chief Complaint: "I hear babies crying..." "I cannot concentrate, I cannot stay focused" Problems Identified/Issues Discussed: Suicide/ homicide prevention, past psychiatric h/o, current psychiatric symptoms , medical problems, risk/benefits and alternatives of medications, medications compliance, coping strategies, substance abuse h/o, relapse prevention, importance of follow up with psychiatrist and therapist, discharge plan. 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 Diagnostic Results: 08/01/16 07:10 08/01/16 07:10 Lab Results 08/01/16 08:00: Free T4 0.77 L, TSH 3rd Generation 2.77 08/01/16 07:10: Sodium 139, Potassium 4.5, Chloride 107, Carbon Dioxide 27, Anion Gap 10, BUN 19, Creatinine 0.8, Est GFR ( Amer) > 60, Est GFR (Non- Af Amer) > 60, Random Glucose 90, Fasting Glucose 90, Calcium 9.5, Total Bilirubin 0.6, AST 24, ALT 26, Alkaline Phosphatase 59, Total Protein 6.4, Albumin 4.0, Globulin 2.4, Albumin/Globulin Ratio 1.7, Triglycerides 57, Cholesterol 228 H, LDL Cholesterol Direct 120, HDL Cholesterol 94 H 08/01/16 07:10: WBC 3.0 L, RBC 4.14, Hgb 13.8, Hct 40.2, MCV 97.1, MCH 33.3, MCHC 34.3, RDW 13.3, Plt Count 154, MPV 9.0, Gran % 39.0 L, Lymph % (Auto) 42.1 H, [place] % (Auto) 16.2 H, Eos % (Auto) 2.0, Baso % (Auto) 0.7, Gran # 1.18 L, Lymph # 1.3, [place] # 0.5, Eos # 0.1, Baso # 0.02 08/01/16 07:00: Amylase 103, Lipase 71 Vital Signs Temp Pulse Resp BP Pulse Ox 08/01/16 07:46 97.7 F 65 20 111/74 07/31/16 08:20 72 16 112/78 99 07/31/16 07:04 98.1 F 68 18 118/64 99 Temp Pulse Resp BP Pulse Ox 98.5 F 73 18 139/63 99 08/05/16 08:03 08/05/16 08:03 08/05/16 08:03 08/05/16 08:03 07/31/16 08:20 Temp Pulse Resp BP Pulse Ox 98.1 F 72 16 128/82 99 08/06/16 07:52 08/06/16 07:52 08/06/16 07:52 08/06/16 07:52 07/31/16 08:20 Temp Pulse Resp BP Pulse Ox 98.0 F 65 16 124/74 99 08/07/16 07:37 08/07/16 07:37 08/06/16 07:52 08/07/16 07:37 07/31/16 08:20 DSM 5 Symptoms Update: pt was transferred from [facility] for evaluation and stabilization of depressive symptoms, suicidal ideation with the plan to walk into the traffic, pt also was drinking alcohol on daily basis, seems to have alcohol withdrawal symptoms. pt needs further evaluation and stabilization, meds titration. Patient was seen with SW, pt said "I hear babies crying..." "I cannot concentrate, I cannot stay focused", patient presented to have improved personal hygiene, less anxious, some improvement to compare with the last week , patient was more organized today. Patient reported that she feels "depressed and anxious". as per staff pt still disorganized, but hygiene is better, still oddly related to others, patient is compliant with the medications, no aggression, no agitation. Compliance with medications good. impression: DSM 5 Diagnosis: MDD r/o substance induced mood disorder alcohol use disorder alcohol withdrawal symptoms Medication Change: Yes (seroquel increased) Medical Record Reviewed: Yes (reports, labs, vitals, notes) Consults ordered or reviewed: medical consult appreciated medical f/u appreciated, pt could be f/u with mamogram as outpatient d/w Mental Status Examination - Cognitive Function Orientation: Person (" my sister talking to me, visual hallucinations of seeing her boyfriend on a picnic and her sister making spaghetti and brownies.), Place , Situation Memory: Intact Attention: Poor (some improvement) Concentration: Poor (some improvement) Association: Loose (some improvement) Fund of Knowledge: Poor - Mood Mood: Depressed (some improvement), Anxious - Affect Affect: Flat - Formal Thought Process Formal Thought Process: Hallucinations ("I hear babies are crying..."), Paranoia , Loosening of associations - Suicidal Ideation Suicidal Ideation: No - Homicidal Ideation Homicidal Ideation: No Goal/Treatment Plan - Goal/Treatment Plan Need for Continued Stay: Remain at risks for inpatient hospitalization, Severe depression anxiety, Discharge may exacerbated symptoms, Severe functional impairment Progress Toward Problem(s) and Goals/Treatment Plan: milieu/structure/supportive therapy multivitamins, folic acid, Thiamine medical evaluation Prozac 30 mg daily for depression and anxiety Neurontin 800 mg 3 times a day Seroquel will be increased to 150 mg at am and 150mg the nighttime for psychosis ativan will be tapering down 1mg bid pt was interviewed [facility] yesterday, could be accepted on Thursday SW evaluation will monitor closely Estimated Date of D/C: 08/11/16 (pt is still psychotic, disorganized)
[2016-08-08] MEDS: Apap-Butalbital-Caffeine 325-50-40mg Tab PO PRN ×3 (05:10→21:14)
[2016-08-08] MEDS: Pantoprazole 40 mg EC Tab PO SCH (07:57)
[2016-08-08] MEDS: Multivitamin Therapeutic Tab PO SCH (07:59)
--- NOTE | 2016-08-08 14:14 | PCM.PYCHPN ---
Psychiatric Progress Note - Psychiatric Progress Note Patient seen today, length of contact: 30 minutes Patient Chief Complaint: "I do not feel good, I refused to take seroquel, I feel weak, I cannot concentrate, I am not ready for discharge" Problems Identified/Issues Discussed: Suicide/ homicide prevention, past psychiatric h/o, current psychiatric symptoms , medical problems, risk/benefits and alternatives of medications, medications compliance, coping strategies, substance abuse h/o, relapse prevention, importance of follow up with psychiatrist and therapist, discharge plan. 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 Diagnostic Results: 08/01/16 07:10 08/01/16 07:10 Lab Results 08/01/16 08:00: Free T4 0.77 L, TSH 3rd Generation 2.77 08/01/16 07:10: Sodium 139, Potassium 4.5, Chloride 107, Carbon Dioxide 27, Anion Gap 10, BUN 19, Creatinine 0.8, Est GFR ( Amer) > 60, Est GFR (Non- Af Amer) > 60, Random Glucose 90, Fasting Glucose 90, Calcium 9.5, Total Bilirubin 0.6, AST 24, ALT 26, Alkaline Phosphatase 59, Total Protein 6.4, Albumin 4.0, Globulin 2.4, Albumin/Globulin Ratio 1.7, Triglycerides 57, Cholesterol 228 H, LDL Cholesterol Direct 120, HDL Cholesterol 94 H 08/01/16 07:10: WBC 3.0 L, RBC 4.14, Hgb 13.8, Hct 40.2, MCV 97.1, MCH 33.3, MCHC 34.3, RDW 13.3, Plt Count 154, MPV 9.0, Gran % 39.0 L, Lymph % (Auto) 42.1 H, [place] % (Auto) 16.2 H, Eos % (Auto) 2.0, Baso % (Auto) 0.7, Gran # 1.18 L, Lymph # 1.3, [place] # 0.5, Eos # 0.1, Baso # 0.02 08/01/16 07:00: Amylase 103, Lipase 71 Vital Signs Temp Pulse Resp BP Pulse Ox 08/01/16 07:46 97.7 F 65 20 111/74 07/31/16 08:20 72 16 112/78 99 07/31/16 07:04 98.1 F 68 18 118/64 99 Temp Pulse Resp BP Pulse Ox 98.5 F 73 18 139/63 99 08/05/16 08:03 08/05/16 08:03 08/05/16 08:03 08/05/16 08:03 07/31/16 08:20 Temp Pulse Resp BP Pulse Ox 98.1 F 72 16 128/82 99 08/06/16 07:52 08/06/16 07:52 08/06/16 07:52 08/06/16 07:52 07/31/16 08:20 Temp Pulse Resp BP Pulse Ox 98.0 F 65 16 124/74 99 08/07/16 07:37 08/07/16 07:37 08/06/16 07:52 08/07/16 07:37 07/31/16 08:20 Temp Pulse Resp BP Pulse Ox 97.8 F 67 20 141/79 99 08/08/16 09:07 08/08/16 09:07 08/08/16 09:07 08/08/16 09:07 07/31/16 08:20 DSM 5 Symptoms Update: pt was transferred from [facility] for evaluation and stabilization of depressive symptoms, suicidal ideation with the plan to walk into the traffic, pt also was drinking alcohol on daily basis, seems to have alcohol withdrawal symptoms. pt needs further evaluation and stabilization, meds titration. Patient was seen at the treatment team room, pt said "I feel weak, I am giving up, I feel very depressed and down, I cannot concentrate, I cannot stay focused ", pt then started to cry, at the same time pt is pessimistic, obviously pt is not psychotic, pt's hygiene is much better, pt is able to sleep better, visible in the unit, pt wants to feel better immediately, supportive therapy and empathic listening provided, education about course of the illness provided, pt was appreciative. pt was educated about changing regular seroquel to ER at , pt also was in agreement to increase dose of prozac "It is helpful for my anxiety, it is under control now". pt said that "I had crazy dream, I was craving for alcohol...", pt willing to start naltrexone, was educated about risk, benefits and alternatives, pt said that she was feeling "okay 8months ago, then I became depressed, and I started to drink alcohol, i was drinking alcohol for the past four months, daily, 2L of vodka". as per staff pt is less psychotic, no aggression, no agitation. Compliance with medications good. pt tolerated meds well, no side effects observed or reported. impression: DSM 5 Diagnosis: MDD r/o substance induced mood disorder alcohol use disorder alcohol withdrawal symptoms Medication Change: Yes (seroquel increased, prozac increased, naltrexone started , ativan decreased ) Medical Record Reviewed: Yes (reports, labs, vitals, notes) Consults ordered or reviewed: medical consult appreciated medical f/u appreciated, pt could be f/u with mamogram as outpatient d/w Mental Status Examination - Cognitive Function Orientation: Person (" my sister talking to me, visual hallucinations of seeing her boyfriend on a picnic and her sister making spaghetti and brownies.), Place , Situation Memory: Intact Attention: Poor (some improvement) Concentration: Poor (some improvement) Association: Loose (some improvement) Fund of Knowledge: Poor - Mood Mood: Depressed (some improvement), Anxious - Affect Affect: Flat - Formal Thought Process Formal Thought Process: Hallucinations ("I hear babies are crying..."), Paranoia , Loosening of associations - Suicidal Ideation Suicidal Ideation: No - Homicidal Ideation Homicidal Ideation: No Goal/Treatment Plan - Goal/Treatment Plan Need for Continued Stay: Remain at risks for inpatient hospitalization, Severe depression anxiety, Discharge may exacerbated symptoms, Severe functional impairment Progress Toward Problem(s) and Goals/Treatment Plan: milieu/structure/supportive therapy multivitamins, folic acid, Thiamine medical evaluation Prozac 40 mg daily for depression and anxiety Neurontin 800 mg 3 times a day Seroquel XR 400mg hs for mood stabilization and psychosis ativan 0.5bid prn for alcohol withdrawals naltrexone 50mg po daily for alcohol addiction pt was interviewed by the boarding home yesterday, could be accepted on Thursday SW evaluation will monitor closely Estimated Date of D/C: 08/11/16 (pt is still psychotic, disorganized)
[2016-08-08] MEDS: QUEtiapine 200 mg XR Tab PO SCH (21:15)
[2016-08-09] MEDS: Apap-Butalbital-Caffeine 325-50-40mg Tab PO PRN ×2 (05:25→15:21)
[2016-08-09] MEDS ORDERED: QUEtiapine 200 mg XR Tab PO SCH (08:00)
[2016-08-09] MEDS: Multivitamin Therapeutic Tab PO SCH (08:09)
[2016-08-09] MEDS: Pantoprazole 40 mg EC Tab PO SCH (08:09)
--- NOTE | 2016-08-09 09:26 | PCM.PYCHPN ---
Psychiatric Progress Note - Psychiatric Progress Note Patient seen today, length of contact: 25 minutes Patient Chief Complaint: "a lot better, my mood and anxiety are a lot better" Problems Identified/Issues Discussed: I reviewed recent notes and met with patient at bedside. Her grooming is adequate and she remains alert and oriented x3. Generally calm and cooperative with questioning. Patient reports that she is feeling "a lot better, my mood and anxiety are a lot better". She also reports that she slept very well. So as far she is tolerating her medications and she does not have any complaints. Her self control, focus and thought process are improving. Today she denies having any hallucinations either auditory or visual. Delusions are not elicit during our morning interview. Nursing notes indicate that patient's self control is improving and that her hallucinations are improving. Overall, her organization and clarity of thought or improving with the titration of her medications. There were no behavioral issues overnight Diagnostic Results: r/o substance induced mood disorder alcohol use disorder alcohol withdrawal symptoms Medication Change: No ( ) Medical Record Reviewed: Yes (reports, labs, vitals, notes) Mental Status Examination - Cognitive Function Orientation: Person (" my sister talking to me, visual hallucinations of seeing her boyfriend on a picnic and her sister making spaghetti and brownies.), Place , Situation Memory: Intact Attention: Poor (some improvement) Concentration: Poor (some improvement) Association: Loose (some improvement) Fund of Knowledge: Poor - Mood Mood: Depressed ( "a lot better, my mood and anxiety are a lot better".), Anxious - Affect Affect: Flat - Formal Thought Process Formal Thought Process: Hallucinations (denies today), Paranoia, Loosening of associations - Suicidal Ideation Suicidal Ideation: No - Homicidal Ideation Homicidal Ideation: No Goal/Treatment Plan - Goal/Treatment Plan Need for Continued Stay: Remain at risks for inpatient hospitalization, Severe depression anxiety, Discharge may exacerbated symptoms, Severe functional impairment Progress Toward Problem(s) and Goals/Treatment Plan: * c/w current tx and plan * No new weekend labs * Vitals reviewed and noted below: Selected Entries 08/08/16 08/08/16 09:07 15:36 Temperature 97.8 F Pulse Rate 67 75 Respiratory 20 Rate Blood Pressure 141/79 136/70 Estimated Date of D/C: 08/11/16 (pt is still psychotic, disorganized)
[2016-08-09] MEDS: QUEtiapine 200 mg XR Tab PO SCH (21:09)
[2016-08-10] MEDS: Apap-Butalbital-Caffeine 325-50-40mg Tab PO PRN ×3 (05:19→21:45)
[2016-08-10] MEDS: Multivitamin Therapeutic Tab PO SCH (08:38)
[2016-08-10] MEDS: Pantoprazole 40 mg EC Tab PO SCH (08:42)
--- NOTE | 2016-08-10 08:52 | PCM.PYCHPN ---
Psychiatric Progress Note - Psychiatric Progress Note Patient seen today, length of contact: 25 minutes Patient Chief Complaint: "feeling better, my anxiety is low now" Problems Identified/Issues Discussed: I reviewed recent notes and met with patient at bedside. Her grooming is adequate and she remains alert and oriented x3. Generally calm and cooperative with questioning. Patient reports again that she is "feeling better, my anxiety is low now". She also reports that she slept very well. So far she is tolerating her medications and she does not have any complaints in this regard. Her self control, focus and thought process are improving though The process does remain scattered and she needs some redirection. Again patient denies having any hallucinations either auditory or visual. She still talks about feeling detached from her surroundings however overt delusions were not elicited. Nursing notes indicate that patient's self control is improving and that her hallucinations are improving. Overall, her organization and clarity of thought or improving with the titration of her medications. There were no behavioral issues over the weekend. Diagnostic Results: r/o substance induced mood disorder alcohol use disorder alcohol withdrawal symptoms Medication Change: No ( ) Medical Record Reviewed: Yes (reports, labs, vitals, notes) Mental Status Examination - Cognitive Function Orientation: Person (" my sister talking to me, visual hallucinations of seeing her boyfriend on a picnic and her sister making spaghetti and brownies.), Place , Situation Memory: Intact Attention: Poor (some improvement) Concentration: Poor (some improvement) Association: Loose (some improvement) Fund of Knowledge: Poor - Mood Mood: Depressed ( "feeling better, my anxiety is low now"), Anxious - Affect Affect: Flat, Other (labile, anxious) - Speech Speech: Appropriate - Formal Thought Process Formal Thought Process: Hallucinations (denied all weekend), Paranoia (improving ), Loosening of associations - Suicidal Ideation Suicidal Ideation: No - Homicidal Ideation Homicidal Ideation: No Goal/Treatment Plan - Goal/Treatment Plan Need for Continued Stay: Remain at risks for inpatient hospitalization, Severe depression anxiety, Discharge may exacerbated symptoms, Severe functional impairment Progress Toward Problem(s) and Goals/Treatment Plan: * c/w current tx and plan * No new weekend labs * Vitals reviewed and noted below: Selected Entries 08/10/16 08:08 Temperature 98.0 F Pulse Rate 62 Respiratory 20 Rate Blood Pressure 118/73 Estimated Date of D/C: 08/11/16 (pt is still psychotic, disorganized)
[2016-08-10] MEDS: Magnesium Hydroxide Susp 30 ml UD PO PRN (12:35)
[2016-08-10] MEDS: QUEtiapine 200 mg XR Tab PO SCH (21:44)
[2016-08-11] MEDS: Apap-Butalbital-Caffeine 325-50-40mg Tab PO PRN ×3 (06:11→16:06)
[2016-08-11] MEDS: Pantoprazole 40 mg EC Tab PO SCH (08:04)
[2016-08-11] MEDS: Magnesium Hydroxide Susp 30 ml UD PO PRN ×2 (08:04→14:41)
[2016-08-11] MEDS: Multivitamin Therapeutic Tab PO SCH (08:45)
--- NOTE | 2016-08-11 16:15 | PCM.PYCHPN ---
Psychiatric Progress Note - Psychiatric Progress Note Patient seen today, length of contact: 30 minutes Patient Chief Complaint: "do you have medication to hold all of the falling apart pieces together..." Problems Identified/Issues Discussed: Suicide/ homicide prevention, past psychiatric h/o, current psychiatric symptoms , medical problems, risk/benefits and alternatives of medications, medications compliance, coping strategies, substance abuse h/o, relapse prevention, importance of follow up with psychiatrist and therapist, discharge plan. 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 Diagnostic Results: 08/01/16 07:10 08/01/16 07:10 Lab Results 08/01/16 08:00: Free T4 0.77 L, TSH 3rd Generation 2.77 08/01/16 07:10: Sodium 139, Potassium 4.5, Chloride 107, Carbon Dioxide 27, Anion Gap 10, BUN 19, Creatinine 0.8, Est GFR ( Amer) > 60, Est GFR (Non- Af Amer) > 60, Random Glucose 90, Fasting Glucose 90, Calcium 9.5, Total Bilirubin 0.6, AST 24, ALT 26, Alkaline Phosphatase 59, Total Protein 6.4, Albumin 4.0, Globulin 2.4, Albumin/Globulin Ratio 1.7, Triglycerides 57, Cholesterol 228 H, LDL Cholesterol Direct 120, HDL Cholesterol 94 H 08/01/16 07:10: WBC 3.0 L, RBC 4.14, Hgb 13.8, Hct 40.2, MCV 97.1, MCH 33.3, MCHC 34.3, RDW 13.3, Plt Count 154, MPV 9.0, Gran % 39.0 L, Lymph % (Auto) 42.1 H, [place] % (Auto) 16.2 H, Eos % (Auto) 2.0, Baso % (Auto) 0.7, Gran # 1.18 L, Lymph # 1.3, [place] # 0.5, Eos # 0.1, Baso # 0.02 08/01/16 07:00: Amylase 103, Lipase 71 Vital Signs Temp Pulse Resp BP Pulse Ox 08/01/16 07:46 97.7 F 65 20 111/74 07/31/16 08:20 72 16 112/78 99 07/31/16 07:04 98.1 F 68 18 118/64 99 Temp Pulse Resp BP Pulse Ox 98.5 F 73 18 139/63 99 08/05/16 08:03 08/05/16 08:03 08/05/16 08:03 08/05/16 08:03 07/31/16 08:20 Temp Pulse Resp BP Pulse Ox 98.1 F 72 16 128/82 99 08/06/16 07:52 08/06/16 07:52 08/06/16 07:52 08/06/16 07:52 07/31/16 08:20 Temp Pulse Resp BP Pulse Ox 98.0 F 65 16 124/74 99 08/07/16 07:37 08/07/16 07:37 08/06/16 07:52 08/07/16 07:37 07/31/16 08:20 Temp Pulse Resp BP Pulse Ox 97.8 F 67 20 141/79 99 08/08/16 09:07 08/08/16 09:07 08/08/16 09:07 08/08/16 09:07 07/31/16 08:20 Temp Pulse Resp BP Pulse Ox 98.0 F 67 20 115/68 99 08/10/16 08:08 08/11/16 07:46 08/11/16 07:46 08/11/16 07:46 07/31/16 08:20 DSM 5 Symptoms Update: pt was transferred from [facility] for evaluation and stabilization of depressive symptoms, suicidal ideation with the plan to walk into the traffic, pt also was drinking alcohol on daily basis, seems to have alcohol withdrawal symptoms. pt needs further evaluation and stabilization, meds titration. Patient was seen in her room, pt said "I had some happy moments over this weekend, but still I have feeling that everything is not real", pt also said " do you have medication to hold all of the falling apart pieces together...", less sedated, has some mood reactivity. as per staff pt is less psychotic, "I have like radio playing all the time in my ears", no aggression, no agitation. Compliance with medications good. pt tolerated meds well, no side effects observed or reported. impression: DSM 5 Diagnosis: MDD r/o substance induced mood disorder alcohol use disorder alcohol withdrawal symptoms Medication Change: Yes (Neurontin increased, Prozac increased Seroquel increased ) Medical Record Reviewed: Yes (reports, labs, vitals, notes) Consults ordered or reviewed: medical consult appreciated medical f/u appreciated, pt could be f/u with [facility] as outpatient d/w Mental Status Examination - Cognitive Function Orientation: Person (" my sister talking to me, visual hallucinations of seeing her boyfriend on a picnic and her sister making spaghetti and brownies.), Place , Situation Memory: Intact Attention: Poor (some improvement) Concentration: Poor (some improvement) Association: Loose (some improvement) Fund of Knowledge: Poor - Mood Mood: Depressed ( "feeling better, my anxiety is low now"), Anxious - Affect Affect: Flat, Other (labile, anxious) - Speech Speech: Appropriate - Formal Thought Process Formal Thought Process: Hallucinations ("I have like radio playing all the time "), Paranoia (improving), Loosening of associations - Suicidal Ideation Suicidal Ideation: No - Homicidal Ideation Homicidal Ideation: No Goal/Treatment Plan - Goal/Treatment Plan Need for Continued Stay: Remain at risks for inpatient hospitalization, Severe depression anxiety, Discharge may exacerbated symptoms, Severe functional impairment Progress Toward Problem(s) and Goals/Treatment Plan: milieu/structure/supportive therapy multivitamins, folic acid, Thiamine medical evaluation Prozac 60 mg daily for depression and anxiety Neurontin 800 mg 4 times a day Seroquel XR 600mg hs for mood stabilization and psychosis ativan dc naltrexone 50mg po daily for alcohol addiction boarding home #1 never return calls pt supposed to be interviewed by [facility] today #2, Mr. Lozada evaluation will monitor closely Estimated Date of D/C: 08/15/16 (pt is still psychotic, disorganized)
[2016-08-11] MEDS: QUEtiapine 200 mg XR Tab PO SCH (21:26)
[2016-08-12] MEDS: Apap-Butalbital-Caffeine 325-50-40mg Tab PO PRN ×2 (04:46→13:01)
[2016-08-12] MEDS: Pantoprazole 40 mg EC Tab PO SCH (08:24)
[2016-08-12] MEDS: Multivitamin Therapeutic Tab PO SCH (08:26)
--- NOTE | 2016-08-12 15:34 | PCM.PYCHPN ---
Psychiatric Progress Note - Psychiatric Progress Note Patient seen today, length of contact: 30 minutes Patient Chief Complaint: "I am still dull" Problems Identified/Issues Discussed: Suicide/ homicide prevention, past psychiatric h/o, current psychiatric symptoms , medical problems, risk/benefits and alternatives of medications, medications compliance, coping strategies, substance abuse h/o, relapse prevention, importance of follow up with psychiatrist and therapist, discharge plan. 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 Diagnostic Results: 08/01/16 07:10 08/01/16 07:10 Lab Results 08/01/16 08:00: Free T4 0.77 L, TSH 3rd Generation 2.77 08/01/16 07:10: Sodium 139, Potassium 4.5, Chloride 107, Carbon Dioxide 27, Anion Gap 10, BUN 19, Creatinine 0.8, Est GFR ( Amer) > 60, Est GFR (Non- Af Amer) > 60, Random Glucose 90, Fasting Glucose 90, Calcium 9.5, Total Bilirubin 0.6, AST 24, ALT 26, Alkaline Phosphatase 59, Total Protein 6.4, Albumin 4.0, Globulin 2.4, Albumin/Globulin Ratio 1.7, Triglycerides 57, Cholesterol 228 H, LDL Cholesterol Direct 120, HDL Cholesterol 94 H 08/01/16 07:10: WBC 3.0 L, RBC 4.14, Hgb 13.8, Hct 40.2, MCV 97.1, MCH 33.3, MCHC 34.3, RDW 13.3, Plt Count 154, MPV 9.0, Gran % 39.0 L, Lymph % (Auto) 42.1 H, [place] % (Auto) 16.2 H, Eos % (Auto) 2.0, Baso % (Auto) 0.7, Gran # 1.18 L, Lymph # 1.3, [place] # 0.5, Eos # 0.1, Baso # 0.02 08/01/16 07:00: Amylase 103, Lipase 71 Vital Signs Temp Pulse Resp BP Pulse Ox 08/01/16 07:46 97.7 F 65 20 111/74 07/31/16 08:20 72 16 112/78 99 07/31/16 07:04 98.1 F 68 18 118/64 99 Temp Pulse Resp BP Pulse Ox 98.5 F 73 18 139/63 99 08/05/16 08:03 08/05/16 08:03 08/05/16 08:03 08/05/16 08:03 07/31/16 08:20 Temp Pulse Resp BP Pulse Ox 98.1 F 72 16 128/82 99 08/06/16 07:52 08/06/16 07:52 08/06/16 07:52 08/06/16 07:52 07/31/16 08:20 Temp Pulse Resp BP Pulse Ox 98.0 F 65 16 124/74 99 08/07/16 07:37 08/07/16 07:37 08/06/16 07:52 08/07/16 07:37 07/31/16 08:20 Temp Pulse Resp BP Pulse Ox 97.8 F 67 20 141/79 99 08/08/16 09:07 08/08/16 09:07 08/08/16 09:07 08/08/16 09:07 07/31/16 08:20 Temp Pulse Resp BP Pulse Ox 98.0 F 67 20 115/68 99 08/10/16 08:08 08/11/16 07:46 08/11/16 07:46 08/11/16 07:46 07/31/16 08:20 DSM 5 Symptoms Update: pt was transferred from [facility] for evaluation and stabilization of depressive symptoms, suicidal ideation with the plan to walk into the traffic, pt also was drinking alcohol on daily basis, seems to have alcohol withdrawal symptoms. pt needs further evaluation and stabilization, meds titration. Patient was seen in her room, pt said "I had some happy moments", pt was concerned about her "dullness", pt was educated about potential side effect from the neurontin, pt verbalized understanding. overall pt presented well. pt observed reading, concentration seems to be better. as per staff pt is less psychotic, "radio playing less", no aggression, no agitation. Compliance with medications good. pt tolerated meds well, no side effects observed or reported. impression: DSM 5 Diagnosis: MDD r/o substance induced mood disorder alcohol use disorder alcohol withdrawal symptoms Medication Change: Yes (Neurontin increased, Prozac increased Seroquel increased ) Medical Record Reviewed: Yes (reports, labs, vitals, notes) Consults ordered or reviewed: medical consult appreciated medical f/u appreciated, pt could be f/u with [facility] as outpatient d/w Mental Status Examination - Cognitive Function Orientation: Person (" my sister talking to me, visual hallucinations of seeing her boyfriend on a picnic and her sister making spaghetti and brownies.), Place , Situation Memory: Intact Attention: Poor (some improvement) Concentration: Poor (some improvement) Association: Loose (some improvement) Fund of Knowledge: Poor - Mood Mood: Depressed ( "feeling better, my anxiety is low now"), Anxious - Affect Affect: Flat, Other (labile, anxious) - Speech Speech: Appropriate - Formal Thought Process Formal Thought Process: Hallucinations ("I have like radio playing all the time "), Paranoia (improving), Loosening of associations - Suicidal Ideation Suicidal Ideation: No - Homicidal Ideation Homicidal Ideation: No Goal/Treatment Plan - Goal/Treatment Plan Need for Continued Stay: Remain at risks for inpatient hospitalization, Severe depression anxiety, Discharge may exacerbated symptoms, Severe functional impairment Progress Toward Problem(s) and Goals/Treatment Plan: milieu/structure/supportive therapy multivitamins, folic acid, Thiamine medical evaluation Prozac 60 mg daily for depression and anxiety Neurontin 800 mg 4 times a day Seroquel XR 600mg hs for mood stabilization and psychosis ativan dc naltrexone 50mg po daily for alcohol addiction boarding home #1 never return calls pt supposed to be interviewed by [facility] today #2, Mr. Lozada, was accepted SW evaluation will monitor closely Estimated Date of D/C: 08/15/16 (pt is still psychotic, disorganized)
[2016-08-12] MEDS: QUEtiapine 200 mg XR Tab PO SCH (21:29)
[2016-08-13] MEDS: Apap-Butalbital-Caffeine 325-50-40mg Tab PO PRN ×2 (06:01→14:11)
[2016-08-13 07:24] VITALS: RESP 20
[2016-08-13] MEDS: Multivitamin Therapeutic Tab PO SCH (08:45)
[2016-08-13] MEDS: Pantoprazole 40 mg EC Tab PO SCH (08:45)
--- NOTE | 2016-08-13 16:47 | PCM.PYCHPN ---
Psychiatric Progress Note - Psychiatric Progress Note Patient seen today, length of contact: 30 minutes Patient Chief Complaint: "I want to be on reall anxiety medications" Problems Identified/Issues Discussed: Suicide/ homicide prevention, past psychiatric h/o, current psychiatric symptoms , medical problems, risk/benefits and alternatives of medications, medications compliance, coping strategies, substance abuse h/o, relapse prevention, importance of follow up with psychiatrist and therapist, discharge plan. 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 Diagnostic Results: 08/01/16 07:10 08/01/16 07:10 Lab Results 08/01/16 08:00: Free T4 0.77 L, TSH 3rd Generation 2.77 08/01/16 07:10: Sodium 139, Potassium 4.5, Chloride 107, Carbon Dioxide 27, Anion Gap 10, BUN 19, Creatinine 0.8, Est GFR ( Amer) > 60, Est GFR (Non- Af Amer) > 60, Random Glucose 90, Fasting Glucose 90, Calcium 9.5, Total Bilirubin 0.6, AST 24, ALT 26, Alkaline Phosphatase 59, Total Protein 6.4, Albumin 4.0, Globulin 2.4, Albumin/Globulin Ratio 1.7, Triglycerides 57, Cholesterol 228 H, LDL Cholesterol Direct 120, HDL Cholesterol 94 H 08/01/16 07:10: WBC 3.0 L, RBC 4.14, Hgb 13.8, Hct 40.2, MCV 97.1, MCH 33.3, MCHC 34.3, RDW 13.3, Plt Count 154, MPV 9.0, Gran % 39.0 L, Lymph % (Auto) 42.1 H, [place] % (Auto) 16.2 H, Eos % (Auto) 2.0, Baso % (Auto) 0.7, Gran # 1.18 L, Lymph # 1.3, [place] # 0.5, Eos # 0.1, Baso # 0.02 08/01/16 07:00: Amylase 103, Lipase 71 Vital Signs Temp Pulse Resp BP Pulse Ox 08/01/16 07:46 97.7 F 65 20 111/74 07/31/16 08:20 72 16 112/78 99 07/31/16 07:04 98.1 F 68 18 118/64 99 Temp Pulse Resp BP Pulse Ox 98.5 F 73 18 139/63 99 08/05/16 08:03 08/05/16 08:03 08/05/16 08:03 08/05/16 08:03 07/31/16 08:20 Temp Pulse Resp BP Pulse Ox 98.1 F 72 16 128/82 99 08/06/16 07:52 08/06/16 07:52 08/06/16 07:52 08/06/16 07:52 07/31/16 08:20 Temp Pulse Resp BP Pulse Ox 98.0 F 65 16 124/74 99 08/07/16 07:37 08/07/16 07:37 08/06/16 07:52 08/07/16 07:37 07/31/16 08:20 Temp Pulse Resp BP Pulse Ox 97.8 F 67 20 141/79 99 08/08/16 09:07 08/08/16 09:07 08/08/16 09:07 08/08/16 09:07 07/31/16 08:20 Temp Pulse Resp BP Pulse Ox 98.0 F 67 20 115/68 99 08/10/16 08:08 08/11/16 07:46 08/11/16 07:46 08/11/16 07:46 07/31/16 08:20 Temp Pulse Resp BP Pulse Ox 97.9 F 69 20 122/74 99 08/13/16 07:23 08/13/16 16:37 08/13/16 07:23 08/13/16 16:37 07/31/16 08:20 DSM 5 Symptoms Update: pt was transferred from [facility] for evaluation and stabilization of depressive symptoms, suicidal ideation with the plan to walk into the traffic, pt also was drinking alcohol on daily basis, seems to have alcohol withdrawal symptoms. pt needs further evaluation and stabilization, meds titration. Patient was seen in her room, pt said "I want to be on real anxiety medications " (pt wants to be on benzos), pt was educated about h/o being alcohol addict and f/u appt will be at [facility] and pt will be not accepted on benzodiazepines. pt reported to feel anxious about d/c tomorrow. concentration is better, hygiene is much better, pt has good appetite and sleep. as per staff pt is less psychotic, denied v/a/t hallucinations, denied paranoia , does not present to be psychotic. pt tolerated meds well, no side effects observed or reported. Aims 0, no EPS. impression: DSM 5 Diagnosis: MDD r/o substance induced mood disorder alcohol use disorder alcohol withdrawal symptoms Medication Change: No Medical Record Reviewed: Yes (reports, labs, vitals, notes) Consults ordered or reviewed: medical consult appreciated medical f/u appreciated, pt could be f/u with [facility] as outpatient d/w Mental Status Examination - Cognitive Function Orientation: Person (" my sister talking to me, visual hallucinations of seeing her boyfriend on a picnic and her sister making spaghetti and brownies.), Place , Situation Memory: Intact Attention: Poor (some improvement) Concentration: Poor (some improvement) Association: Loose (some improvement) Fund of Knowledge: Poor - Mood Mood: Depressed ( "feeling better, my anxiety is low now"), Anxious - Affect Affect: Constricted (was more reactive and mood congruent) - Speech Speech: Appropriate - Formal Thought Process Formal Thought Process: No Impairment - Suicidal Ideation Suicidal Ideation: No - Homicidal Ideation Homicidal Ideation: No Goal/Treatment Plan - Goal/Treatment Plan Need for Continued Stay: Remain at risks for inpatient hospitalization, Severe depression anxiety, Discharge may exacerbated symptoms, Severe functional impairment Progress Toward Problem(s) and Goals/Treatment Plan: milieu/structure/supportive therapy multivitamins, folic acid, Thiamine medical evaluation Prozac 60 mg daily for depression and anxiety Neurontin 800 mg 4 times a day Seroquel XR 600mg hs for mood stabilization and psychosis ativan dc naltrexone 50mg po daily for alcohol addiction boarding home #1 never return calls pt supposed to be interviewed by [facility] today #2, Mr. Lozada, was accepted patient will be discharged tomorrow Estimated Date of D/C: 08/15/16 (pt is still psychotic, disorganized)
[2016-08-13] MEDS: QUEtiapine 200 mg XR Tab PO SCH (21:07)
[2016-08-14] MEDS: Apap-Butalbital-Caffeine 325-50-40mg Tab PO PRN (03:06)
[2016-08-14 06:59] VITALS: BP 133/73; PULSE 67; TEMP 98.5
[2016-08-14] MEDS: Multivitamin Therapeutic Tab PO SCH (08:15)
[2016-08-14] MEDS: Pantoprazole 40 mg EC Tab PO SCH (08:16)
--- NOTE | 2016-08-14 14:20 | PCM.PYCHDC ---
Mental Status Examination - Mental Status Examination Orientation: Person, Place, Situation, Time Memory: Intact Mood: Neutral Affect: Constricted (reactive mood congruent) Speech: Appropriate Attention: WNL Concentration: WNL Association: WNL Fund of Knowledge: WNL Formal Thought Process: No Impairment Description of patient's judgement and insight: Pt has improved insight into mental and medical illness, pt was compliant with medications and unit rules and regulations, pt was going to groups, was calm, cooperative, socially appropriate, no behavioral incidents, no agitation, no aggression. Psychotic Thoughts and Behaviors: Pt denied v/a/t hallucinations, denied paranoid ideations, pt does not appear to be psychotic, and thought process is goal directed. Suicidal Ideation: No Current Homicidal Ideation?: No Plan: pt adamantly denied thoughts of harming self or others denied intent or plan. Discharge Summary - Discharge Note Reason for Hospitalization: pt was transferred from [facility] for evaluation and stabilization of depressive symptoms, suicidal ideation with the plan to walk into the traffic, pt also was drinking alcohol on daily basis, seems to have alcohol withdrawal symptoms. pt needs further evaluation and stabilization, meds titration. Vital Signs Temp Pulse Resp BP Pulse Ox 07/31/16 08:20 72 16 112/78 99 07/31/16 07:04 98.1 F 68 18 118/64 99 Psychiatric History (includes Medical, Family, Personal Hx): see HPI Laboratory Data: 08/01/16 07:10 08/01/16 07:10 Lab Results 08/01/16 08:00: RPR Nonreactive 08/01/16 08:00: Free T4 0.77 L, TSH 3rd Generation 2.77 08/01/16 07:10: Sodium 139, Potassium 4.5, Chloride 107, Carbon Dioxide 27, Anion Gap 10, BUN 19, Creatinine 0.8, Est GFR ( Amer) > 60, Est GFR (Non- Af Amer) > 60, Random Glucose 90, Fasting Glucose 90, Calcium 9.5, Total Bilirubin 0.6, AST 24, ALT 26, Alkaline Phosphatase 59, Total Protein 6.4, Albumin 4.0, Globulin 2.4, Albumin/Globulin Ratio 1.7, Triglycerides 57, Cholesterol 228 H, LDL Cholesterol Direct 120, HDL Cholesterol 94 H 08/01/16 07:10: WBC 3.0 L, RBC 4.14, Hgb 13.8, Hct 40.2, MCV 97.1, MCH 33.3, MCHC 34.3, RDW 13.3, Plt Count 154, MPV 9.0, Gran % 39.0 L, Lymph % (Auto) 42.1 H, [place] % (Auto) 16.2 H, Eos % (Auto) 2.0, Baso % (Auto) 0.7, Gran # 1.18 L, Lymph # 1.3, [place] # 0.5, Eos # 0.1, Baso # 0.02 08/01/16 07:00: Amylase 103, Lipase 71 Vital Signs Temp Pulse Resp BP Pulse Ox 08/14/16 06:58 98.5 F 67 20 133/73 08/13/16 16:37 69 122/74 08/13/16 07:23 97.9 F 68 20 130/65 08/12/16 16:00 64 131/80 08/12/16 06:48 97.6 F 64 18 108/60 08/11/16 16:00 73 142/86 08/11/16 07:46 67 20 115/68 08/10/16 17:28 60 136/76 08/10/16 08:08 98.0 F 62 20 118/73 08/09/16 22:09 138/85 08/09/16 06:53 97.9 F 66 18 119/64 08/08/16 15:36 75 136/70 08/08/16 09:07 97.8 F 67 20 141/79 08/07/16 16:00 71 112/51 L 08/07/16 07:37 98.0 F 65 124/74 08/06/16 16:38 78 121/70 08/06/16 07:52 98.1 F 72 16 128/82 08/05/16 16:59 76 113/61 08/05/16 08:03 98.5 F 73 18 139/63 08/04/16 16:45 82 133/67 08/04/16 07:37 98.2 F 78 17 145/56 L 08/03/16 17:06 79 138/92 H 08/03/16 08:22 98.4 F 72 20 129/84 08/02/16 16:29 78 140/77 08/02/16 07:00 97.9 F 62 18 111/68 08/01/16 19:58 85 18 120/65 08/01/16 07:46 97.7 F 65 20 111/74 07/31/16 08:20 72 16 112/78 99 07/31/16 07:04 98.1 F 68 18 118/64 99 Consultations:: List each consultation separately and include: 1. Reason for request. 2. Findings. 3. Follow-up Consultations: medical consult appreciated medical f/u appreciated, pt could be f/u with [facility] as outpatient d/w Summary of Hospital Course include:: 1. Description of specific treatment plan utilized for patients during their course of treatmen. 2. Summarize the time- course for resolution of acute symptoms and/or regressed behaviors. 3. Describe issues identified and worked on during hospitalization. 4. Describe medication utilized. 5. Describe medical problems identified and treated. 6. Reassessment of suicide risk Summary of Hospital Course: pt was transferred from [facility] for evaluation and stabilization of depressive symptoms, suicidal ideation with the plan to walk into the traffic, pt also was drinking alcohol on daily basis, seems to have alcohol withdrawal symptoms. pt needs further evaluation and stabilization, meds titration. initially patient presented to have poor personal hygiene, anxious, upper extremity tremor, seems to be withdrawing. fear ADLs. Patient reported that she was feeling hopeless, helpless, depressed, worthless, guilty, patient also reported that she had suicidal ideations with a plan to walk into the traffic. Patient reported that she has feeling of anxiety, social phobia, PTSD symptoms as well as generalized anxiety disorder. patient reported that she was drinking alcohol in order to help herself with depression and anxiety. Patient also reported that she was smoking cigarettes 1 pack a day counseling provided. 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 patient has history of suicidal attempts by cutting her wrists and overdosing on medications. Risk benefits alternatives of the medications explain. family history denied Medical issues patient is healthy. patient was stabilized on the following medications: Tapering dose of Ativan, no withdrawal symptoms Multivitamins, thiamine, folic acid Naltrexone was started 50 mg a day for alcohol addiction Prozac was slowly titrated to 60 mg daily for depression and anxiety Neurontin 800 mg 4 times a day for anxiety and alcohol cravings Seroquel was slowly titrated to XR 600mg hs for mood stabilization and psychosis patient tolerated medications well, denied side effects, aims 0, no EPS. Over the course of this hospitalization pt was attending groups, pt also had medication management, had therapeutic milieu. Overall pt improved significantly, pt's affect became brighter, pt was less depressed, has realistic future oriented plans, pt also does not appear to be psychotic, or anxious, pt was socially appropriate, no behavioral issues, pts insight improved as well and soon pt deemed to be ready for discharge. At the time of the discharge pt denied been depressed, denied thoughts of harming self or others, denied psychotic symptoms, and pt does not appeared to be psychotic, denied been anxious, was considered to pose no threat to self or others, will be following up at [facility], information about follow up appointment, time and address provided to the pt, it is patient responsibility to follow up with outpatient clinic, PMD as well as specialists (see SW note for more detailed information). In case pt will need to obtain results of studies pending at discharge pt was provided with contact information of Psychiatric Inpatient unit [phone] as well as Medical Record Department [phone]. Nicotine patch was offered Counseling about smoking and alcohol cessation provided AA meetings as well as [facility] smoking cessation treatment program information was provided by the pt was provided with prescriptions for all of medications (please see medication reconciliation form) pt was interviewed by at [facility], pt was accepted Pt was educated about safety plan in case of worsening of symptoms or in case of suicidal or homicidal ideation call 911 or go to the nearest ER, also was educated to take meds as prescribed and stay away from drugs, pt verbalized understanding. - Diagnosis (1) Alcohol use disorder Status: Acute (2) Substance induced mood disorder Status: Acute (3) Major depressive disorder Status: Acute - Final Diagnosis (DSM 5) Condition upon Discharge: STABLE Disposition: HOME/ ROUTINE Follow-up Treatment Plan: At the time of the discharge pt denied been depressed, denied thoughts of harming self or others, denied psychotic symptoms, and pt does not appeared to be psychotic, denied been anxious, was considered to pose no threat to self or others, will be following up at [facility], information about follow up appointment, time and address provided to the pt, it is patient responsibility to follow up with outpatient clinic, PMD as well as specialists (see SW note for more detailed information). In case pt will need to obtain results of studies pending at discharge pt was provided with contact information of Psychiatric Inpatient unit [phone] as well as Medical Record Department [phone]. Nicotine patch was offered Counseling about smoking and alcohol cessation provided AA meetings as well as [facility] smoking cessation treatment program information was provided by the SW pt was provided with prescriptions for all of medications (please see medication reconciliation form) pt was interviewed by at [facility], pt was accepted Pt was educated about safety plan in case of worsening of symptoms or in case of suicidal or homicidal ideation call 911 or go to the nearest ER, also was educated to take meds as prescribed and stay away from drugs, pt verbalized understanding. Prescriptions/Medication Reconciliation: RX: Acetaminophen/Butalbital/Caf [Fioricet] 1 tab PO Q8 PRN #14 tab PRN Reason: Headache RX: FLUoxetine [Prozac] 60 mg PO DAILY #14 cap RX: Folic Acid 1 mg PO DAILY #14 tab RX: Gabapentin [Neurontin] 800 mg PO TID #54 cap RX: Multivitamin Therapeutic Tab [Thera Tab] 1 tab PO DAILY #14 tab RX: Naltrexone [Revia] 50 mg PO DAILY #14 tab RX: Nicotine 14 mg/24 hr [Nicoderm CQ] 1 patch TD DAILY #1 patch RX: QUEtiapine [Seroquel XR] 600 mg PO HS #14 ter RX: Thiamine [Vitamin B1 Tab] 100 mg PO DAILY #14 tab - Smoking Cessation Smoking Cessation Medication prescribed: Yes - Antipsychotic Medications Pt discharged on 2 or more routine antipsychotic medications: No
== END 2016-08-14 12:16 | disposition home or self-care (01) | DRG 426 ==
LOC: ED 06:57 → ERH 07:58 → PSYC 08:53
PROVIDERS: ADMIT Psychiatry & Neurology Psychiatry; ATTEND Psychiatry & Neurology Psychiatry
DX: F32.9 Major depressive disorder, single episode, unspecified (principal); F10.14 Alcohol abuse with alcohol-induced mood disorder; F10.239 Alcohol dependence with withdrawal, unspecified; F17.210 Nicotine dependence, cigarettes, uncomplicated; N63 Unspecified lump in breast; R45.851 Suicidal ideations; R10.9 Unspecified abdominal pain; R05 Cough; Y90.9 Presence of alcohol in blood, level not specified; Z87.11 Personal history of peptic ulcer disease